=== PATIENT | female | born 1935 | race Caucasian/White ===

== ENCOUNTER 2016-09-29 14:49 | Emergency (ER) | payer OTHER ==
[~2016-09-29] VITALS: Ht 170.2 cm; Wt 137.0 kg
[~2016-09-29 14:49] MED LIST: AMLO5TAB22 PO; APIX5TAB PO; ATEN-100 PO; FENO54TA PO; LOVA20TA PO; OMEP20TA PO; TAB-TAB PO; ULTR50TA PO; VASO10TA8 PO; VITA20002 PO; WELLTAB39 PO
[2016-09-29 14:51] VITALS: BP 194/93; PULSE 83; RESP 17; TEMP 98.4; O2SAT 95
--- NOTE | 2016-09-29 15:21 | PD ---
Physical Exam Time Seen by Provider: 15:19 Narrative 81 y/o female on eliquis here after falling last night. She doesn't know why she fell. She has pain in her R hip/leg. Vital signs reviewed. Seen at triage desk. Awaiting bed placement. Data Data Last Documented VS Vital Signs Date Time Temp Pulse Resp B/P Pulse Ox O2 Delivery O2 Flow Rate FiO2 09/29/16 14:51 98.4 83 17 194/93 95 MDM Medical Record Reviewed: Yes Supervised Visit with LEIA: Jean-Pierre Flynn Sep 29, 2016 15:21
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
[2016-09-29] MEDS ORDERED: FENO54TA PO (17:21)
[2016-09-29] MEDS ORDERED: WELLTAB39 PO (17:21)
[2016-09-29] MEDS ORDERED: AMBI5TAB PO (17:21)
[2016-09-29] MEDS ORDERED: APIX5TAB PO (17:21)
[2016-09-29] MEDS ORDERED: ENAL10TA PO (17:21)
[2016-09-29] MEDS ORDERED: VITA2000 PO (17:21)
[2016-09-29] MEDS ORDERED: ATEN50TA PO (17:21)
[2016-09-29] MEDS ORDERED: AMLO5TAB2 PO (17:21)
[2016-09-29] MEDS ORDERED: OMEP40CA2 PO (17:23)
[2016-09-29] MEDS ORDERED: MULTTAB27 PO (17:23)
[2016-09-29] MEDS ORDERED: TRAM50TA PO (17:23)
[2016-09-29] MEDS ORDERED: LOVA20TA PO (17:23)
--- NOTE | 2016-09-29 17:55 | RADRPT ---
EXAM DATE/TIME: 09/29/2016 17:38 [facility] COMPARISON: No previous studies available for comparison. INDICATIONS : Right arm pain; fell lastnight. MEDICAL HISTORY : None. SURGICAL HISTORY : None. ENCOUNTER: Initial ACUITY: 1 day PAIN SCORE: 3/10 LOCATION: Right forearm FINDINGS: Two view examination of the right forearm demonstrates no evidence of fracture or dislocation. Bony mineralization is normal. The soft tissue structures are intact. CONCLUSION: Unremarkable examination of the right forearm. Miguel Steward MD on September 29, 2016 at 17:53 Board Certified Radiologist. This report was verified electronically.
[2016-09-29 17:58] LABS: AUTOMATED NEUTROPHIL # 6.2 TH/MM3 (1.8-7.7); BASOPHIL % 0.4 % (0.0-2.0); EOSINOPHIL # 0.1 TH/MM3 (0-0.4); HEMATOCRIT 40.9 % (35.0-46.0); HEMO FLAGS DIFF FINAL; LYMPH % 12.7 % (9.0-44.0); LYMPHOCYTE # 1.1 TH/MM3 (1.0-4.8); MEAN CELL VOLUME 96.8 FL (80.0-100.0); MEAN CORPUSCULAR HEMOGLOBIN 32.3 PG (27.0-34.0); MEAN CORPUSCULAR HGB CONC 33.3 % (32.0-36.0); MONO % 12.1 % (0.0-8.0); NEUT % 73.8 % (16.0-70.0); PLATELET COUNT 167 TH/MM3 (150-450); RED BLOOD COUNT 4.23 MIL/MM3 (4.00-5.30); RED CELL DISTRIBUTION WIDTH 15.4 % (11.6-17.2); WHITE BLOOD COUNT 8.5 TH/MM3 (4.0-11.0)
[2016-09-29 18:04] LABS: APTT (PATIENT) 29.4 SEC (24.3-30.1)
[2016-09-29 18:12] LABS: BICARBONATE 27.3 MEQ/L (21.0-32.0); POTASSIUM 3.8 MEQ/L (3.5-5.1)
--- NOTE | 2016-09-29 18:44 | RADRPT ---
EXAM DATE/TIME: 09/29/2016 18:21 [facility] COMPARISON: No previous studies available for comparison. INDICATIONS : Trauma, fall from standing yesterday. RADIATION DOSE: 56.35 CTDIvol (mGy) MEDICAL HISTORY : Hypertension. SURGICAL HISTORY : Hysterectomy. ovarian tumor removed ENCOUNTER: Initial ACUITY: 2 days PAIN SCALE: 0/10 LOCATION: Bilateral head TECHNIQUE: Multiple contiguous axial images were obtained of the head. Using automated exposure control and adj ustment of the mA and/or kV according to patient size, radiation dose was kept as low as reasonably a chievable to obtain optimal diagnostic quality images. DICOM format image data is available electro nically for review and comparison. FINDINGS: There is no hemorrhage or signs of acute infarct or periventricular white matter disease identified a nd most likely on the basis of chronic microvascular ischemic disease. An extra-axial hyperdense mass in the posterior fossa on the right measuring 1.6 x 1.8 cm in AP dimension is difficult to exclude o n axial image 10. There is no edema or mass effect. This may be related to the right cerebellar hemis phere though indeterminate. No fractures. CONCLUSION: 1. Extra-axial appearing rounded hyperdensity in the posterior fossa on the right is noted. A mass ca n have this appearance. MRI of the brain with and without contrast suggested for further assessment. 2. Patchy white matter disease with no evidence for intracranial hemorrhage. Дмитрий Santos MD on September 29, 2016 at 18:41 Board Certified Radiologist. This report was verified electronically.
--- NOTE | 2016-09-29 18:48 | RADRPT ---
EXAM DATE/TIME: 09/29/2016 18:22 [facility] COMPARISON: No previous studies available for comparison. INDICATIONS : Trauma, fall from standing yesterday. RADIATION DOSE: 65.94 CTDIvol (mGy) ; Patient body habitus MEDICAL HISTORY : Hypertension. renal stone SURGICAL HISTORY : Hysterectomy. Cholecystectomy. ovarian tumor removed ENCOUNTER: Initial ACUITY: 2 days PAIN SCALE: 5/10 LOCATION: Right hip TECHNIQUE: Volumetric scanning of the hip was performed. Using automated exposure control and adjustment of the mA and/or kV according to patient size, radiation dose was kept as low as reasonably achievable to o btain optimal diagnostic quality images. DICOM format image data is available electronically for rev iew and comparison. FINDINGS: BONES: No evidence of fracture. Alignment is within normal limits. JOINTS: No evidence of joint narrowing or effusion. SOFT TISSUES: Muscles, tendons and neurovascular structures are grossly unremarkable. No evidence of mass, organize d fluid collection, or foreign body. CONCLUSION: No acute disease. Дмитрий Santos MD on September 29, 2016 at 18:45 Board Certified Radiologist. This report was verified electronically.
--- NOTE | 2016-09-29 18:49 | RADRPT ---
EXAM DATE/TIME: 09/29/2016 18:28 [facility] COMPARISON: No previous studies available for comparison. INDICATIONS : Trauma, fall from standing yesterday. RADIATION DOSE: 41.45 CTDIvol (mGy) ; Patient body habitus MEDICAL HISTORY : Hypertension. SURGICAL HISTORY : Hysterectomy. ovarian tumor removed ENCOUNTER: Initial ACUITY: 2 days PAIN SCALE: 8/10 LOCATION: Right knee TECHNIQUE: Volumetric scanning of the knee was performed. Using automated exposure control and adjustment of th e mA and/or kV according to patient size, radiation dose was kept as low as reasonably achievable to obtain optimal diagnostic quality images. DICOM format image data is available electronically for re view and comparison. FINDINGS: The bone density is decreased there is moderate osteoarthritis at the patellofemoral joint and severe narrowing of the medial greater than lateral tibiofemoral compartment with a [id number] appearance medially. Subchondral sclerosis and prominent marginal osteophytosis of the medial lateral aspects o f the tibiofemoral joint. There is spurring of the tibial spines. There is a large knee joint effusio n. A fracture is not present. CONCLUSION: 1. Severe osteoarthritis no knee joint effusion without definite fracture. Дмитрий Santos MD on September 29, 2016 at 18:47 Board Certified Radiologist. This report was verified electronically.
[2016-09-29] MEDS ORDERED: GADOBENATE DIM PF 529 MG/ML 20ML VIAL (for RAD MRI) IV ONE (20:05)
--- NOTE | 2016-09-29 20:20 | RADRPT ---
EXAM DATE/TIME: 09/29/2016 19:36 [facility] COMPARISON: CT BRAIN W/O CONTRAST, September 29, 2016, 18:21. INDICATIONS : Mass. CONTRAST: 20 cc Multihance (gadobenate) IV MEDICAL HISTORY : Carcinoma, ovarian. Hypertension. SURGICAL HISTORY : Tonsillectomy. Cholecystectomy. Hysterectomy. Hernia repair. ENCOUNTER: Subsequent ACUITY: 1 day PAIN SCORE: 3/10 LOCATION: cranial TECHNIQUE: Multiplanar, multisequence MRI of the brain was performed both prior to and following the administrat ion of paramagnetic contrast. FINDINGS: Diffusion weighted images demonstrate no evidence for acute infarction. There is mild fine loss and p atchy increased flair signal in bilateral centrum semiovale, periventricular white matter and mary mo st characteristic of chronic microvascular ischemic disease. There is no hemorrhage. The MRI confirms the presence of an avidly enhancing extra-axial mass abutting the right transverse sinus with mild m ass effect on the posterior superior cerebellum. The mass measures 2.2 x 1.8 cm in AP and transverse dimension. No other masses are seen. A meningioma would be the leading consideration in the absence o f known malignancy, a dural based metastatic deposit is felt considerably less likely. It is isointen se to peralta matter on T1 and T2-weighted images. CONCLUSION: 1. Mild volume loss and white matter disease. 2. Extra-axial posterior fossa mass abutting the transverse sinus with imaging features consistent wi th meningioma. A metastatic deposit is felt less likely. Дмитрий Santos MD on September 29, 2016 at 20:15 Board Certified Radiologist. This report was verified electronically.
--- NOTE | 2016-09-29 21:02 | PD ---
Physical Exam Date Seen by Provider: Sep 29, 2016 Data Data Last Documented VS Vital Signs Date Time Temp Pulse Resp B/P Pulse Ox O2 Delivery O2 Flow Rate FiO2 09/29/16 14:51 98.4 83 17 194/[address] Brain W/O Iv Contrast(Rout) (09/29/16 ) Ct Knee W/O Contrast (09/29/16 ) Ct Hip W/O Contrast (09/29/16 ) Forearm (2vws) (09/29/16 ) Complete Blood Count With Diff (09/29/16 17:07) Basic Metabolic Panel (Bmp) (09/29/16 17:07) Prothrombin Time / Inr (Pt) (09/29/16 17:07) Act Partial Throm Time (Ptt) (09/29/16 17:07) Mri Brain W&W/O Contrast (09/29/16 ) Gadobenate Dimeglimine Pf Inj (Multihanc (09/29/16 20:05) Labs Laboratory Tests Test 09/29/16 17:15 White Blood Count 8.5 TH/MM3 Red Blood Count 4.23 MIL/MM3 Hemoglobin 13.6 GM/DL Hematocrit 40.9 % Mean Corpuscular Volume 96.8 FL Mean Corpuscular Hemoglobin 32.3 PG Mean Corpuscular Hemoglobin 33.3 % Concent Red Cell Distribution Width 15.4 % Platelet Count 167 TH/MM3 Mean Platelet Volume 10.4 FL Neutrophils (%) (Auto) 73.8 % Lymphocytes (%) (Auto) 12.7 % Monocytes (%) (Auto) 12.1 % Eosinophils (%) (Auto) 1.0 % Basophils (%) (Auto) 0.4 % Neutrophils # (Auto) 6.2 TH/MM3 Lymphocytes # (Auto) 1.1 TH/MM3 Monocytes # (Auto) 1.0 TH/MM3 Eosinophils # (Auto) 0.1 TH/MM3 Basophils # (Auto) 0.0 TH/MM3 CBC Comment DIFF FINAL Differential Comment Prothrombin Time 11.0 SEC Prothromb Time International 1.0 RATIO Ratio Activated Partial 29.4 SEC Thromboplast Time Sodium Level 138 MEQ/L Potassium Level 3.8 MEQ/L Chloride Level 103 MEQ/L Carbon Dioxide Level 27.3 MEQ/L Anion Gap 8 MEQ/L Blood Urea Nitrogen 31 MG/DL Creatinine 1.32 MG/DL Estimat Glomerular Filtration 39 ML/MIN Rate Random Glucose 97 MG/DL Calcium Level 9.8 MG/DL [facility] Medical Record Reviewed: Yes Supervised Visit with LEAI: No Interpretation(s) Vital Signs Date Time Temp Pulse Resp B/P Pulse Ox O2 Delivery O2 Flow Rate FiO2 09/29/16 14:51 98.4 83 17 194/93 95 Laboratory Tests Test 09/29/16 17:15 White Blood Count 8.5 TH/MM3 (4.0-11.0) Red Blood Count 4.23 MIL/MM3 (4.00-5.30) Hemoglobin 13.6 GM/DL (11.6-15.3) Hematocrit 40.9 % (35.0-46.0) Mean Corpuscular Volume 96.8 FL (80.0-100.0) Mean Corpuscular Hemoglobin 32.3 PG (27.0-34.0) Mean Corpuscular Hemoglobin 33.3 % Concent (32.0-36.0) Red Cell Distribution Width 15.4 % (11.6-17.2) Platelet Count 167 TH/MM3 (150-450) Mean Platelet Volume 10.4 FL (7.0-11.0) Neutrophils (%) (Auto) 73.8 % (16.0-70.0) Lymphocytes (%) (Auto) 12.7 % (9.0-44.0) Monocytes (%) (Auto) 12.1 % (0.0-8.0) Eosinophils (%) (Auto) 1.0 % (0.0-4.0) Basophils (%) (Auto) 0.4 % (0.0-2.0) Neutrophils # (Auto) 6.2 TH/MM3 (1.8-7.7) Lymphocytes # (Auto) 1.1 TH/MM3 (1.0-4.8) Monocytes # (Auto) 1.0 TH/MM3 (0-0.9) Eosinophils # (Auto) 0.1 TH/MM3 (0-0.4) Basophils # (Auto) 0.0 TH/MM3 (0-0.2) CBC Comment DIFF FINAL Differential Comment Prothrombin Time 11.0 SEC (9.8-11.6) Prothromb Time International 1.0 RATIO Ratio Activated Partial 29.4 SEC Thromboplast Time (24.3-30.1) Sodium Level 138 MEQ/L (136-145) Potassium Level 3.8 MEQ/L (3.5-5.1) Chloride Level 103 MEQ/L (98-107) Carbon Dioxide Level 27.3 MEQ/L (21.0-32.0) Anion Gap 8 MEQ/L (5-15) Blood Urea Nitrogen 31 MG/DL (7-18) Creatinine 1.32 MG/DL (0.50-1.00) Estimat Glomerular Filtration 39 ML/MIN (>89) Rate Random Glucose 97 MG/DL (74-106) Calcium Level 9.8 MG/DL (8.5-10.1) Last Impressions Radius/Ulna X-Ray 09/29/16 Signed Impressions: Service Date/Time: September 17:38 - CONCLUSION: Unremarkable examination of the right forearm. Miguel Steward MD Lower Extremity CT 09/29/16 Signed Impressions: Service Date/Time: September 18:22 - CONCLUSION: No acute disease. Дмитрий Santos MD Lower Extremity CT 09/29/16 Signed Impressions: Service Date/Time: September 18:28 - CONCLUSION: 1. Severe osteoarthritis no knee joint effusion without definite fracture. Дмитрий Santos MD Head CT 09/29/16 Signed Impressions: Service Date/Time: September 18:21 - CONCLUSION: 1. Extra- axial appearing rounded hyperdensity in the posterior fossa on the right is noted. A mass can have this appearance. MRI of the brain with and without contrast suggested for further assessment. 2. Patchy white matter disease with no evidence for intracranial hemorrhage. Дмитрий Santos MD Brain MRI 09/29/16 Signed Impressions: Service Date/Time: September 19:36 - CONCLUSION: 1. Mild volume loss and white matter disease. 2. Extra-axial posterior fossa mass abutting the transverse sinus with imaging features consistent with meningioma. A metastatic deposit is felt less likely. Дмитрий Santos MD Differential Diagnosis Differential includes knee fractures, forearm contusion versus fracture, ICH, electrolyte abnormality, ACS though unlikely Narrative Course Patient signed out to me by Dr. Lorenzana and change of shift, patient pending MRI of brain. Please see previous providers records for full workup and history of patient. Patient is an 81-year-old female who presents to emergency room after she had trip and fall last night while at home. Patient reports that she was walking with her walker to the bathroom, reports that she must of trips, reports that she fell backwards and landed on her knees. She denies any loss of consciousness, denies any headache or dizziness at this time. Patient reports that when she came to the emergency room was because of pain to her knees. Patient is on Eliquis as she has history of atrial fibrillation. Patient with no complaints of headache or dizziness, denies any chest pain or shortness of breath. Patient's only complaint is bilateral knee pain which has improved throughout her ER visit. CBC & BMP Diagram 09/29/16 17:15 Labs reviewed Last Impressions Radius/Ulna X-Ray 09/29/16 0000 Signed Impressions: Service Date/Time: , September 29, 2016 17:38 - CONCLUSION: Unremarkable examination of the right forearm. Miguel Steward MD Lower Extremity CT 09/29/16 0000 Signed Impressions: Service Date/Time: , September 29, 2016 18:22 - CONCLUSION: No acute disease. Дмитрий Santos MD Lower Extremity CT 09/29/16 0000 Signed Impressions: Service Date/Time: , September 29, 2016 18:28 - CONCLUSION: 1. Severe osteoarthritis no knee joint effusion without definite fracture. Дмитрий Santos MD Head CT 09/29/16 0000 Signed Impressions: Service Date/Time: September 18:21 - CONCLUSION: 1. Extra- axial appearing rounded hyperdensity in the posterior fossa on the right is noted. A mass can have this appearance. MRI of the brain with and without contrast suggested for further assessment. 2. Patchy white matter disease with no evidence for intracranial hemorrhage. Дмитрий Santos MD Brain MRI 09/29/16 0000 Signed Impressions: Service Date/Time: , September 29, 2016 19:36 - CONCLUSION: 1. Mild volume loss and white matter disease. 2. Extra-axial posterior fossa mass abutting the transverse sinus with imaging features consistent with meningioma. A metastatic deposit is felt less likely. Дмитрий Santos MD CT, x-rays and MRI reports reviewed. Copies of her reports were given to her at discharge as she will need to follow-up with a primary care doctor. Brain MRI shows a Extra-axial posterior fossa mass abutting the transverse sinus with imaging features consistent with meningioma. A metastatic deposit is felt less likely. This was reviewed with patient in detail. Patient has been ambulating in ER with normal gait. Patient reports that she feels better and wanted to be discharged home. Signs and symptoms of when to return to the emergency room was reviewed patient and her in detail. Diagnosis Primary Impression: Fall Qualified Code: W19.XXXA - Fall, initial encounter Additional Impressions: Sprain of knee Qualified Code: S83.90XA - Sprain of knee, unspecified laterality, unspecified ligament, initial encounter Arthritis Meningioma Patient Instructions: General Instructions Additional Instruction: Please provide patient with a copy of her lab work and studies at discharge Please follow-up with your primary care doctor in 24-48 hours Return to the emergency room as needed Return to emergency department if symptoms worsen or progress Disposition: 01 DISCHARGE HOME Condition: Stable Emili Grey DO Sep 29, 2016 21:02
[2016-09-29 21:13] VITALS: BP 169/78
== END 2016-09-29 21:14 | disposition home or self-care (01) ==
LOC: NEPC 14:49
DX: S83.90XA Sprain of unspecified site of unspecified knee, initial encounter (principal); M25.561 Pain in right knee; M25.551 Pain in right hip; I48.91 Unspecified atrial fibrillation; W19.XXXA Unspecified fall, initial encounter; Y93.01 Activity, walking, marching and hiking; Z79.01 Long term (current) use of anticoagulants
CPT/HCPCS: 70450; 70553; 73090; 73700; 80048; 85025; 85610; 85730; 99285; A9577

== ENCOUNTER 2016-11-15 16:41 | Emergency (ER) | payer OTHER ==
[~2016-11-15] VITALS: Ht 172.7 cm; Wt 138.4 kg
[~2016-11-15 16:41] MED LIST changes: +AMBI5TAB PO; +AMLO5TAB2 PO; -AMLO5TAB22 PO; -ATEN-100 PO; +ATEN50TA PO; +ENAL10TA PO; +MULTTAB27 PO; -OMEP20TA PO; +OMEP40CA2 PO; -TAB-TAB PO; +TRAM50TA PO; -ULTR50TA PO; -VASO10TA8 PO; +VITA2000 PO; -VITA20002 PO
[2016-11-15 16:47] VITALS: BP 228/100; PULSE 77; RESP 18; TEMP 97.9; O2SAT 92
[2016-11-15] MEDS ORDERED: VENL75TA PO (17:11)
[2016-11-15] MEDS ORDERED: GABA100C4 PO (17:11)
[2016-11-15] MEDS ORDERED: PARO20TA2 PO (17:11)
[2016-11-15] MEDS ORDERED: ALLO100T PO (17:11)
[2016-11-15] MEDS ORDERED: OXYB5TAB10 PO (17:11)
[2016-11-15] MEDS ORDERED: ATENOLOL 25 MG TAB PO ONE (17:30)
--- NOTE | 2016-11-15 17:46 | PD ---
HPI Chief Complaint: Hypertension Time Seen by Provider: 17:05 Travel History International Travel<30 days: No Contact w/Intl Traveler<30days: No Traveled to known affect area: No History of Present Illness HPI 81 y/o female presents with elevated blood pressure. her states that she has been off her blood pressure medication for the past week. They went to a new primary Dr. Soares who thought they should come to the er for bp control. She is off her atenolol. She denies pain but does note tired all over. states the doctor noiced the swelling in her legs but thinks it has been there awhile maybe a couple months. she also denies shortness of breath and other compliants. quality is elevated. severity in office is 240 range over 120 range. patient is a poor historian [facility] Past Medical History Narrative Medical by records Hx Anticoagulant Therapy: Yes Arthritis: Yes Blood Disorders: No Anxiety: Yes Depression: Yes Cancer: Yes (abd -) Cardiovascular Problems: Yes Dementia: Yes (DURING INTERVIEW, WHISPERED DEMENTIA) Diminished Hearing: No Endocrine: No Gastrointestinal Disorders: Yes GERD: Yes Gout: Yes Genitourinary: Yes Hepatitis: No Hiatal Hernia: No Hypertension: Yes Immune Disorder: No Kidney Stones: Yes Musculoskeletal: Yes Neurologic: No Psychiatric: Yes Reproductive: No Respiratory: No Ulcer: No ?: Not Menopausal: Yes Past Surgical History Narrative Surgical by records Abdominal Surgery: Yes (BOWEL OBSTRUCTION IN 2001) AICD: No Appendectomy: No Arteriovenous Shunt: No Cardiac Surgery: No Cholecystectomy: Yes Ear Surgery: No Endocrine Surgery: No Eye Surgery: No Genitourinary Surgery: No Gynecologic Surgery: No Hysterectomy: Yes (TOTAL) Insulin Pump: No Joint Replacement: No Oral Surgery: No Pacemaker: No Tonsillectomy: Yes Other Surgery: Yes (RIGHT KNEE ARTHROSCOPIC / OVARIAN TUMOR REMOVED) Social History Alcohol Use: Yes (WINE WITH MEAL, OCCASS.) Tobacco Use: No (quit) Substance Use: No Allergies-Medications (Allergen,Severity, Reaction): Coded Allergies: codeine (Unverified Allergy, Severe, n/v, 11/15/16) meperidine (Unverified Allergy, Unknown, 11/15/16) morphine (Unverified Adverse Reaction, Severe, Confusion, 11/15/16) PT STATES SHE GOT OUT OF RESTRAINTS AND WAS PULLING AT EVERYTHING Reported Meds & Prescriptions Reported Meds & Active Scripts Active Reported Effexor (Venlafaxine HCl) 75 Mg Tab 75 Mg PO DAILY Paroxetine (Paroxetine HCl) 20 Mg Tab 20 Mg PO DAILY Allopurinol 100 Mg Tab 100 Mg PO DAILY Gabapentin 100 Mg Cap 200 Mg PO TID Ditropan (Oxybutynin Chloride) 5 Mg Tab 5 Mg PO TID Tramadol (Tramadol HCl) 50 Mg Tab 50 Mg PO TID PRN Omeprazole 40 Mg Cap 20 Mg PO BID Enalapril (Enalapril Maleate) 10 Mg Tab 10 Mg PO BID Vitamin D3 (Cholecalciferol) 2,000 Unit Cap 2,000 Units PO DAILY Atenolol 50 Mg Tab 25 Mg PO BID Eliquis (Apixaban) 5 Mg Tab 5 Mg PO BID Review of Systems ROS Limitations: Poor Historian Physical Exam Exam Limitations: Poor Historian Narrative GENERAL: Well-nourished, well-developed patient. SKIN: Warm and dry. HEAD: Normocephalic and atraumatic. EYES: No injection or drainage. ENT: No nasal drainage noted. NECK: Supple, trachea midline. CARDIOVASCULAR: Regular rate and rhythm RESPIRATORY: Breath sounds equal bilaterally. No accessory muscle use. GASTROINTESTINAL: Abdomen soft, non-tender, nondistended. EXTREMITIES: 3+ pitting edema noted to bilateral lower extremities to knees, nvi , no joint pain NEUROLOGICAL: Awake. moves all extremities and sensory grossly within normal limits. Normal speech. Data Data Last Documented VS Vital Signs Date Time Temp Pulse Resp B/P (MAP) Pulse Ox O2 Delivery O2 Flow Rate FiO2 11/15/16 18:44 71 18 176/84 (114) 95 11/15/16 16:47 97.9 Orders Orders Magnesium (Mg) (11/15/16 17:20) Phosphorus (Po4) (11/15/16 17:20) Complete Blood Count With Diff (11/15/16 17:20) Basic Metabolic Panel (Bmp) (11/15/16 17:20) Urinalysis - C+S If Indicated (11/15/16 17:20) Chest, Pa & Lat (11/15/16 ) Iv Access Insert/Monitor (11/15/16 17:20) Ecg Monitoring (11/15/16 17:20) Oximetry (11/15/16 17:20) Atenolol (Tenormin) (11/15/16 17:30) Us Leg Venous Doppler Bilat (11/15/16 17:52) Labs Laboratory Tests Test 11/15/16 17:45 White Blood Count 13.3 TH/MM3 Red Blood Count 4.02 MIL/MM3 Hemoglobin 12.6 GM/DL Hematocrit 38.4 % Mean Corpuscular Volume 95.5 FL Mean Corpuscular Hemoglobin 31.4 PG Mean Corpuscular Hemoglobin Concent 32.9 % Red Cell Distribution Width 15.2 % Platelet Count 218 TH/MM3 Mean Platelet Volume 10.2 FL Neutrophils (%) (Auto) 80.2 % Lymphocytes (%) (Auto) 8.7 % Monocytes (%) (Auto) 5.9 % Eosinophils (%) (Auto) 1.2 % Basophils (%) (Auto) 4.0 % Neutrophils # (Auto) 10.6 TH/MM3 Lymphocytes # (Auto) 1.2 TH/MM3 Monocytes # (Auto) 0.8 TH/MM3 Eosinophils # (Auto) 0.2 TH/MM3 Basophils # (Auto) 0.5 TH/MM3 CBC Comment DIFF FINAL Differential Comment Blood Urea Nitrogen 28 MG/DL Creatinine 1.30 MG/DL Random Glucose 108 MG/DL Calcium Level 9.9 MG/DL Phosphorus Level 2.9 MG/DL Magnesium Level 1.8 MG/DL Sodium Level 140 MEQ/L Potassium Level 4.0 MEQ/L Chloride Level 104 MEQ/L Carbon Dioxide Level 28.1 MEQ/L Anion Gap 8 MEQ/L Estimat Glomerular Filtration Rate 39 ML/MIN MDM Medical Decision Making Medical Screen Exam Complete: Yes Emergency Medical Condition: Yes Medical Record Reviewed: Yes (pmh confirmed) Interpretation(s) CBC & BMP Diagram 11/15/16 17:45 Calcium Level 9.9, Phosphorus Level 2.9, Magnesium Level 1.8 Last 24 hours Impressions Chest X-Ray 11/15/16 0000 Signed Impressions: Service Date/Time: Tuesday, November 15, 2016 17:47 - CONCLUSION: No acute infiltrate. Mild cardiomegaly. Large hiatal hernia. Stevo Quinones MD Differential Diagnosis anemia, renal failure, electrolyte abnormality, dvt, chf, hypertensive urgency... Narrative Course will check labs, cxr, us and dose with home atenolol and reeval Physician Communication Physician Communication dr hart to follow ua and ultrasound and reeval Dara Vail MD Nov 15, 2016 17:46
[2016-11-15 17:48] VITALS: O2SAT 98
[2016-11-15 17:57] LABS: AUTOMATED NEUTROPHIL # 10.6 TH/MM3 (1.8-7.7); BASOPHIL # 0.5 TH/MM3 (0-0.2); EOSINOPHIL # 0.2 TH/MM3 (0-0.4); EOSINOPHIL % 1.2 % (0.0-4.0); HEMATOCRIT 38.4 % (35.0-46.0); HEMO FLAGS DIFF FINAL; LYMPH % 8.7 % (9.0-44.0); LYMPHOCYTE # 1.2 TH/MM3 (1.0-4.8); MEAN CELL VOLUME 95.5 FL (80.0-100.0); MEAN CORPUSCULAR HEMOGLOBIN 31.4 PG (27.0-34.0); MEAN CORPUSCULAR HGB CONC 32.9 % (32.0-36.0); MONO % 5.9 % (0.0-8.0); NEUT % 80.2 % (16.0-70.0); PLATELET COUNT 218 TH/MM3 (150-450); RED BLOOD COUNT 4.02 MIL/MM3 (4.00-5.30); RED CELL DISTRIBUTION WIDTH 15.2 % (11.6-17.2); WHITE BLOOD COUNT 13.3 TH/MM3 (4.0-11.0)
--- NOTE | 2016-11-15 18:07 | RADRPT ---
EXAM DATE/TIME: 11/15/2016 17:47 [facility] COMPARISON: CHEST SINGLE AP, March 27, 2015, 16:01. INDICATIONS : High blood pressure. Patient was sent to the emergency room by her primary care physician with high blood pressure. MEDICAL HISTORY : Carcinoma, ovarian. Hypertension. SURGICAL HISTORY : Tonsillectomy. Cholecystectomy. Hysterectomy. Hernia repair. ENCOUNTER: Initial ACUITY: 1 day PAIN SCORE: 0/10 LOCATION: Bilateral chest FINDINGS: No infiltrate, effusion or pneumothorax seen. Large hiatal hernia again noted. Mild cardiomegaly is s table. CONCLUSION: No acute infiltrate. Mild cardiomegaly. Large hiatal hernia. Stevo Quinones MD on November 15, 2016 at 18:04 Board Certified Radiologist. This report was verified electronically.
[2016-11-15 18:10] LABS: BICARBONATE 28.1 MEQ/L (21.0-32.0); MAGNESIUM 1.8 MG/DL (1.5-2.5)
[2016-11-15 18:44] VITALS: BP 176/84; PULSE 71; RESP 18; O2SAT 95
--- NOTE | 2016-11-15 19:29 | RADRPT ---
EXAM DATE/TIME: 11/15/2016 18:17 [facility] COMPARISON: No previous studies available for comparison. INDICATIONS : Bilateral leg edema. MEDICAL HISTORY : Gastroesophageal reflux disease. Dementia. Hypertension. Kidney stones. Arthritis. Depression. Anxiety. Carcinoma, unspecified. SURGICAL HISTORY : Tonsillectomy.Cholecystectomy. Hysterectomy.Bowel obstruction removal. Back surgery. Right knee art hroscopy. Ovarian tumor removal. ENCOUNTER: Initial ACUITY: 1 month PAIN SCORE: 6/10 LOCATION: Bilateral legs. TECHNIQUE: Venous ultrasound of the left and right leg was performed from the inguinal ligament to the proximal calf. Real-time, color Doppler and spectral tracing, compression and augmentation techniques were us ed. FINDINGS: RIGHT LEG: There is normal compressibility of the deep venous system from the inguinal region to the proximal ca lf. No echogenic clot is seen in the lumen of the common femoral, femoral, popliteal, and posterior tibial veins. There is a normal response of the venous system to proximal and distal augmentation an d respiration. LEFT LEG: There is normal compressibility of the deep venous system from the inguinal region to the proximal ca lf. No echogenic clot is seen in the lumen of the common femoral, femoral, popliteal, and posterior tibial veins. There is a normal response of the venous system to proximal and distal augmentation an d respiration. CONCLUSION: Negative for deep venous thrombosis. Popliteal cyst on the left, complex. Adonis Gonzalez MD on November 15, 2016 at 19:22 Board Certified Radiologist. This report was verified electronically.
[2016-11-15 19:33] VITALS: PULSE 68; RESP 18; O2SAT 93
[2016-11-15 19:34] LABS: GLUCOSE,URINE NEG (NEG); KETONE, URINE NEG (NEG); NITRITE,URINE NEG (NEG); PH, URINE 5.5 (5.0-8.5)
--- NOTE | 2016-11-15 19:41 | PD ---
Data Data Last Documented VS Vital Signs Date Time Temp Pulse Resp B/P (MAP) Pulse Ox O2 Delivery O2 Flow Rate FiO2 11/15/16 19:52 60 189/94 (125) 95 Room Air 11/15/16 19:33 18 11/15/16 16:47 97.9 Orders Orders Magnesium (Mg) (11/15/16 17:20) Phosphorus (Po4) (11/15/16 17:20) Complete Blood Count With Diff (11/15/16 17:20) Basic Metabolic Panel (Bmp) (11/15/16 17:20) Urinalysis - C+S If Indicated (11/15/16 17:20) Chest, Pa & Lat (11/15/16 ) Iv Access Insert/Monitor (11/15/16 17:20) Ecg Monitoring (11/15/16 17:20) Oximetry (11/15/16 17:20) Atenolol (Tenormin) (11/15/16 17:30) Us Leg Venous Doppler Bilat (11/15/16 17:52) Labs Laboratory Tests Test 11/15/16 17:45 11/15/16 19:20 White Blood Count 13.3 TH/MM3 Red Blood Count 4.02 MIL/MM3 Hemoglobin 12.6 GM/DL Hematocrit 38.4 % Mean Corpuscular Volume 95.5 FL Mean Corpuscular Hemoglobin 31.4 PG Mean Corpuscular Hemoglobin Concent 32.9 % Red Cell Distribution Width 15.2 % Platelet Count 218 TH/MM3 Mean Platelet Volume 10.2 FL Neutrophils (%) (Auto) 80.2 % Lymphocytes (%) (Auto) 8.7 % Monocytes (%) (Auto) 5.9 % Eosinophils (%) (Auto) 1.2 % Basophils (%) (Auto) 4.0 % Neutrophils # (Auto) 10.6 TH/MM3 Lymphocytes # (Auto) 1.2 TH/MM3 Monocytes # (Auto) 0.8 TH/MM3 Eosinophils # (Auto) 0.2 TH/MM3 Basophils # (Auto) 0.5 TH/MM3 CBC Comment DIFF FINAL Differential Comment Blood Urea Nitrogen 28 MG/DL Creatinine 1.30 MG/DL Random Glucose 108 MG/DL Calcium Level 9.9 MG/DL Phosphorus Level 2.9 MG/DL Magnesium Level 1.8 MG/DL Sodium Level 140 MEQ/L Potassium Level 4.0 MEQ/L Chloride Level 104 MEQ/L Carbon Dioxide Level 28.1 MEQ/L Anion Gap 8 MEQ/L Estimat Glomerular Filtration Rate 39 ML/MIN Urine Color [place] Urine Turbidity MOD Urine pH 5.5 Urine Specific [place] 1.022 Urine Protein 100 mg/dL Urine Glucose (UA) NEG mg/dL Urine Ketones NEG mg/dL Urine Occult Blood TRACE Urine Nitrite NEG Urine Bilirubin NEG Urine Leukocyte Esterase NEG Urine RBC 0-3 /hpf Urine WBC 0-2 /hpf Urine Squamous Epithelial Cells > 8 /hpf Urine Calcium Oxalate Crystals OCC /hpf Urine Bacteria FEW /hpf Urine Hyaline Casts 6-9 /lpf Urine Fine Granular Casts 0-2 /lpf Urine Mucus MOD /lpf Microscopic Urinalysis Comment CULT NOT INDICATED MDM Supervised Visit with LEIA: No Narrative Course The patient was initially evaluated by the previous provider and sent out to me at the beginning of my shift pending labs, bilateral lower extremity ultrasound , and disposition. See her note for further details. Briefly this is an 81-year-old female with history of hypertension who has not had her atenolol for the last week who was seen by a new primary care physician today who noticed her blood pressure was elevated at 200s/100s, so she was sent to the emergency department by him for evaluation. The patient is completely asymptomatic. She denies chest pain or dyspnea. No headache. No paresthesias or motor deficits. Patient has also had lower extremity edema which has been going on for a couple of months. Initial vital signs showed a blood pressure 228/100. The patient was given a dose of her atenolol with improvement in heart rate to 176/84. The rest of her vital signs are within normal limits. CBC shows WBC 13.3, hemoglobin 12.6, hematocrit 38.4, platelets 218. BMP is remarkable for BUN 20, creatinine 1.3, GFR 39 which is around her baseline, otherwise unremarkable. Chest x-ray shows no acute infiltrate. Mild cardiomegaly. Large hiatal hernia. Bilateral lower extremity venous duplex: Negative for DVT. Popliteal cyst on the left, complex. UA: Moderate turbidity, 100 protein, trace occult blood, greater than 8 squamous epithelial cells, occasional calcium oxalate crystals, few bacteria, 6-9 hyalin casts, moderate mucus, not suggestive of UTI. Patient and the patient's were made aware of all findings. On exam she is resting comfortably. Again she is asymptomatic. She is not displaying any signs or symptoms of hypertensive crisis. She would like to go home. She has a prescription for her atenolol which she states she will be able to fill. She is stable for discharge home with further management as an outpatient with her primary care physician this week. I will write her a refill of her atenolol. She was informed on when to return to the emergency department. She verbalizes understanding and agreement with plan. Diagnosis Primary Impression: Elevated blood pressure reading Referrals: Primary Care Physician 3 days Additional Instruction: Follow-up with your primary care physician this week. Take medications as prescribed. Return to the emergency department for worsening symptoms or any other concerns. Scripts Atenolol (Atenolol) 25 Mg Tab 25 MG PO BID for Blood Pressure Management, #60 TAB 0 Refills Prov: Lei Sethi MD 11/15/16 Disposition: 01 DISCHARGE HOME Condition: Stable Lei Sethi MD Nov 15, 2016 19:41
[2016-11-15 19:52] VITALS: BP 189/94; PULSE 60; O2SAT 95
[2016-11-15 19:53] LABS: BLOOD, URINE TRACE (NEG)
[2016-11-15 19:59] LABS: URINE COLOR AMBER (YELLW/STRAW)
[2016-11-15 20:02] LABS: MUCUS URINE MOD /lpf (OCC); SQUAMOUS EPITHELIAL CELL URINE > 8 /hpf (0-5)
[2016-11-15 20:03] LABS: BACTERIA, URINE FEW /hpf; CALCIUM OXALATE CRYSTALS,URINE OCC /hpf
[2016-11-15 20:04] LABS: COMMENT (UR) CULT NOT INDICATED; CULTURE IF INDICATED CULT NOT INDICATED; RBC, URINE 0-3 /hpf (0-3); WBC, URINE 0-2 /hpf (0-5)
[2016-11-15] MEDS ORDERED: ATEN25TA PO (20:20)
== END 2016-11-15 20:40 | disposition home or self-care (01) ==
LOC: PHED 16:41
DX: I10 Essential (primary) hypertension (principal); R60.0 Localized edema; F03.90 Unspecified dementia, unspecified severity, without behavioral disturbance, psychotic disturbance, mood disturbance, and anxiety; K21.9 Gastro-esophageal reflux disease without esophagitis; M10.9 Gout, unspecified; R53.83 Other fatigue; Z79.01 Long term (current) use of anticoagulants
CPT/HCPCS: 71020; 80048; 81001; 83735; 84100; 85025; 93970

== ENCOUNTER 2017-02-17 17:07 | Inpatient (IN) | payer OTHER, MEDICARE ==
[2017-02-17] VITALS (7 sets, daily range): BP systolic 160–196; BP diastolic 77–109; PULSE 63–86; RESP 16–20; TEMP 98.2–98.9; O2SAT 92–97
[~2017-02-17] VITALS: Ht 172.7 cm; Wt 130.5 kg
[~2017-02-17 17:07] MED LIST changes: +ALLO100T PO; -AMBI5TAB PO; -AMLO5TAB2 PO; +ATEN25TA PO; -FENO54TA PO; +GABA100C4 PO; -LOVA20TA PO; -MULTTAB27 PO; +OXYB5TAB8 PO; +PARO20TA2 PO; +VENL75TA PO; -WELLTAB39 PO
[2017-02-17] MEDS ORDERED: ACETAMINOPHEN/HYDROcodone 325 MG/5 MG TAB PO ONE (17:45)
[2017-02-17] MEDS ORDERED: ONDANSETRON HCL 4 MG/2 ML VIAL IV PUSH ONE (17:45)
[2017-02-17] MEDS ORDERED: SODIUM CHLORIDE 0.9% FLUSH 10 ML FLUSH IVF PRN (17:45)
[2017-02-17 17:53] LABS: CHLORIDE 102 MEQ/L (98-107); POTASSIUM 3.3 MEQ/L (3.5-5.1); SODIUM (NA) 140 MEQ/L (136-145)
[2017-02-17 17:54] LABS: AUTOMATED NEUTROPHIL # 8.7 TH/MM3 (1.8-7.7); BASOPHIL # 0.1 TH/MM3 (0-0.2); BASOPHIL % 0.6 % (0.0-2.0); EOSINOPHIL # 0.4 TH/MM3 (0-0.4); EOSINOPHIL % 3.2 % (0.0-4.0); HEMATOCRIT 41.3 % (35.0-46.0); LYMPH % 9.9 % (9.0-44.0); LYMPHOCYTE # 1.1 TH/MM3 (1.0-4.8); MEAN CELL VOLUME 93.7 FL (80.0-100.0); MEAN CORPUSCULAR HEMOGLOBIN 30.4 PG (27.0-34.0); MEAN CORPUSCULAR HGB CONC 32.5 % (32.0-36.0); MONO % 6.5 % (0.0-8.0); NEUT % 79.8 % (16.0-70.0); PLATELET COUNT 193 TH/MM3 (150-450); RED BLOOD COUNT 4.41 MIL/MM3 (4.00-5.30); RED CELL DISTRIBUTION WIDTH 14.4 % (11.6-17.2)
[2017-02-17 17:56] LABS: HEMO FLAGS DIFF FINAL
[2017-02-17 17:57] LABS: ANION GAP 10 MEQ/L (5-15); BICARBONATE 28.5 MEQ/L (21.0-32.0); BLOOD UREA NITROGEN 22 MG/DL (7-18)
--- NOTE | 2017-02-17 17:58 | RADRPT ---
EXAM DATE/TIME: 02/17/2017 17:47 [facility] COMPARISON: ABDOMEN FLAT & UPRIGHT, February 21, 2015, 13:51. CHEST SINGLE AP, March 27, 2015, 16:01. INDICATIONS : Chest pain. MEDICAL HISTORY : Gastroesophageal reflux disease. Dementia. Hypertension. Kidney stones, Arthritis. Depression. Anxiet y. Carcinoma, unspecified SURGICAL HISTORY : Tonsillectomy.Cholecystectomy. Hysterectomy.Bowel obstruction, Back surgery. Right knee arthroscopy. Ovarian tumor removal ENCOUNTER: Initial ACUITY: 1 day PAIN SCORE: 5/10 LOCATION: Bilateral chest FINDINGS: The cardiac silhouette is enlarged in transverse diameter. The lungs are free of acute parenchymal op acity. No effusions are identified. There is parenchymal scarring on the left. A large hiatal hernia is present. There is prominence of the aortic knob is with calcification characteristic of atheroscle rotic vascular disease. CONCLUSION: 1. Cardiomegaly. No acute pulmonary disease. 2. Hiatal hernia Nabor Michael MD on February 17, 2017 at 17:56 Board Certified Radiologist. This report was verified electronically.
[2017-02-17 17:59] LABS: APTT (PATIENT) 28.5 SEC (24.3-30.1); INTERNATIONAL NORMALIZED RATIO 1.1 RATIO; PROTHROMBIN TIME - PATIENT 10.8 SEC (9.8-11.6)
[2017-02-17 18:00] LABS: ALT (GPT) 14 U/L (10-53); AST (GOT) 15 U/L (15-37); GLOMERULAR FILTRATION RATE 39 ML/MIN (>89)
[2017-02-17 18:02] LABS: TOTAL BILIRUBIN ADULT 1.3 MG/DL (0.2-1.0)
[2017-02-17 18:03] LABS: ALKALINE PHOSPHATASE 67 U/L (45-117)
--- NOTE | 2017-02-17 18:20 | PD ---
HPI Chief Complaint: Chest Pain Time Seen by Provider: 17:23 Travel History International Travel<30 days: No Contact w/Intl Traveler<30days: No Traveled to known affect area: No History of Present Illness HPI Patient is an 82-year-old female who comes in with multiple complaints of been going on for the past 2 weeks since her daughter . She says she has had cough with chest pain and right shoulder pain. She says all of her aches and pains come and go. She says the cough makes the pain worse. She doesn't pain is in her right shoulder and goes down her arm. Her is concerned that she seems to be having trouble breathing. She says occasionally she feels short of breath. She also complains of some upper abdominal pain. She does not think she's had fever or chills. She says she has having a hard time coping with the loss of her daughter. PFSH Past Medical History Hx Anticoagulant Therapy: Yes Arthritis: Yes Blood Disorders: No Anxiety: Yes Depression: Yes Cancer: Yes (abd -) Cardiovascular Problems: Yes Dementia: Yes (DURING INTERVIEW, WHISPERED DEMENTIA) Diminished Hearing: No Endocrine: No Gastrointestinal Disorders: Yes GERD: Yes Gout: Yes Genitourinary: Yes Hepatitis: No Hiatal Hernia: No Hypertension: Yes Immune Disorder: No Kidney Stones: Yes Musculoskeletal: Yes Neurologic: No Psychiatric: Yes Reproductive: No Respiratory: No Ulcer: No Tetanus Vaccination: Unknown Influenza Vaccination: No Menopausal: Yes Past Surgical History Abdominal Surgery: Yes (BOWEL OBSTRUCTION IN 2001) AICD: No Appendectomy: No Arteriovenous Shunt: No Cardiac Surgery: No Cholecystectomy: Yes Ear Surgery: No Endocrine Surgery: No Eye Surgery: No Genitourinary Surgery: No Gynecologic Surgery: No Hysterectomy: Yes (TOTAL) Insulin Pump: No Joint Replacement: No Oral Surgery: No Pacemaker: No Tonsillectomy: Yes Other Surgery: Yes (RIGHT KNEE ARTHROSCOPIC / OVARIAN TUMOR REMOVED) Social History Alcohol Use: Yes (WINE WITH MEAL, OCCASS.) Tobacco Use: No (quit) Substance Use: No Allergies-Medications (Allergen,Severity, Reaction): Coded Allergies: codeine (Verified Allergy, Severe, n/v, 02/17/17) meperidine (Verified Allergy, Unknown, 02/17/17) morphine (Verified Adverse Reaction, Severe, Confusion, 02/17/17) PT STATES SHE GOT OUT OF RESTRAINTS AND WAS PULLING AT EVERYTHING Reported Meds & Prescriptions Reported Meds & Active Scripts Active Reported Paroxetine (Paroxetine HCl) 20 Mg Tab 20 Mg PO DAILY Allopurinol 100 Mg Tab 100 Mg PO DAILY Gabapentin 100 Mg Cap 200 Mg PO TID Ditropan (Oxybutynin Chloride) 5 Mg Tab 5 Mg PO TID Tramadol (Tramadol HCl) 50 Mg Tab 50 Mg PO TID PRN Omeprazole 40 Mg Cap 20 Mg PO BID Enalapril (Enalapril Maleate) 10 Mg Tab 10 Mg PO BID Vitamin D3 (Cholecalciferol) 2,000 Unit Cap 2,000 Units PO DAILY Atenolol 50 Mg Tab 25 Mg PO BID Eliquis (Apixaban) 5 Mg Tab 5 Mg PO BID Review of Systems Except as stated in HPI: all other systems reviewed are Neg General / Constitutional: No: Fever, Chills HENT: No: Headaches, Lightheadedness Cardiovascular: Positive: Chest Pain or Discomfort Respiratory: Positive: Cough, Shortness of Breath Genitourinary: Positive: Dysuria Skin: No Rash, No Change in Pigmentation Neurologic: No: Weakness, Dizziness Physical Exam Narrative GENERAL: Awake and alert, in no acute distress. SKIN: Focused skin assessment warm/dry. HEAD: Atraumatic. Normocephalic. EYES: Pupils equal and round. No scleral icterus. ENT: Mucous membranes pink and moist. NECK: Trachea midline. No JVD. CARDIOVASCULAR: Regular rate and rhythm. No murmur appreciated. RESPIRATORY: No accessory muscle use. Crackles to the left lung base.. Breath sounds equal bilaterally. GASTROINTESTINAL: Abdomen soft, nondistended. Tenderness across the upper abdomen, worse in the epigastric area. No rebound or guarding. MUSCULOSKELETAL: No obvious deformities. No clubbing. No cyanosis. Mild edema of bilateral feet. NEUROLOGICAL: Awake and alert. No obvious cranial nerve deficits. Motor grossly within normal limits. Normal speech. PSYCHIATRIC: Appropriate mood and affect; insight and judgment normal. Data Data Last Documented VS Vital Signs Date Time Temp Pulse Resp B/P (MAP) Pulse Ox O2 Delivery O2 Flow Rate FiO2 02/17/17 20:00 76 173/94 (120) 187/109 (135) 02/17/17 19:34 96 Room Air 02/17/17 19:32 16 02/17/17 17:15 98.9 Orders Orders Complete Blood Count With Diff (02/17/17 17:35) Comprehensive Metabolic Panel (02/17/17 17:35) Prothrombin Time / Inr (Pt) (02/17/17 17:35) Act Partial Throm Time (Ptt) (02/17/17 17:35) Troponin I (02/17/17 17:35) Lipase (02/17/17 17:35) Chest, Single Ap (02/17/17 17:35) Ecg Monitoring (02/17/17 17:35) Bilateral Bp Monitoring (02/17/17 17:35) Iv Access Insert/Monitor (02/17/17 17:35) Oximetry (02/17/17 17:35) Oxygen Administration (02/17/17 17:35) Sodium Chloride 0.9% Flush (Ns Flush) (02/17/17 17:45) B-Type Natriuretic Peptide (02/17/17 17:35) Ct Abd/Pel W Iv Contrast(Rout) (02/17/17 ) Acetamin-Hydrocod 325-5 Mg ([place] 5-325 (02/17/17 17:45) Ondansetron Inj (Zofran Inj) (02/17/17 17:45) Iodixanol 320 Inj (Rad Ct) ([place] 32 (02/17/17 18:34) Us Abdomen Gallbladder (02/17/17 ) Aspirin Chew (Aspirin Chew) (02/18/17 09:00) Nitroglycerin 2% Oint (Nitroglycerin 2% (02/17/17 21:00) Ckmb (Isoenzyme) Profile (02/17/17 17:40) Electrocardiogram (02/17/17 17:16) Activity Bed Rest With Brp (02/17/17 21:05) Vital Signs (Adult) Q4H (02/17/17 21:05) Cardiac Rhythm .As Directed (02/17/17 21:05) Notify Dr: Other .PRN (02/17/17 21:05) Notify DrLeelee Parameters (02/17/17 21:05) Resp Oxygen Nasal Cannula (02/17/17 ) Ckmb (Isoenzyme) Profile (02/17/17 21:05) Ckmb (Isoenzyme) Profile (02/18/17 00:05) Troponin I (12/8/17 21:05) Troponin I (02/18/17 00:05) Electrocardiogram (02/17/17 21:05) Electrocardiogram (02/18/17 00:05) ^ Obtain (02/17/17 21:05) Sodium Chloride 0.9% Flush (Ns Flush) (02/17/17 21:15) Sodium Chloride 0.9% Flush (Ns Flush) (02/18/17 09:00) Acetaminophen (Tylenol) (02/17/17 21:15) Ondansetron Inj (Zofran Inj) (02/17/17 21:15) Tufter Operator / Telemetry JAIR.Q8H (02/17/17 21:05) Heparin Inj (Heparin Inj) (02/17/17 22:00) Potassium Chloride (Kcl) (02/17/17 22:00) Admit Order (Ed Use Only) (02/17/17 ) Tufter Operator / Telemetry JAIR.Q8H (02/17/17 21:08) Activity Oob With Assistance (02/17/17 21:08) Notify Dr: Other (02/17/17 21:08) Labs Laboratory Tests Test 02/17/17 17:40 White Blood Count 11.0 TH/MM3 Red Blood Count 4.41 MIL/MM3 Hemoglobin 13.4 GM/DL Hematocrit 41.3 % Mean Corpuscular Volume 93.7 FL Mean Corpuscular Hemoglobin 30.4 PG Mean Corpuscular Hemoglobin Concent 32.5 % Red Cell Distribution Width 14.4 % Platelet Count 193 TH/MM3 Mean Platelet Volume 10.4 FL Neutrophils (%) (Auto) 79.8 % Lymphocytes (%) (Auto) 9.9 % Monocytes (%) (Auto) 6.5 % Eosinophils (%) (Auto) 3.2 % Basophils (%) (Auto) 0.6 % Neutrophils # (Auto) 8.7 TH/MM3 Lymphocytes # (Auto) 1.1 TH/MM3 Monocytes # (Auto) 0.7 TH/MM3 Eosinophils # (Auto) 0.4 TH/MM3 Basophils # (Auto) 0.1 TH/MM3 CBC Comment DIFF FINAL Differential Comment Prothrombin Time 10.8 SEC Prothromb Time International Ratio 1.1 RATIO Activated Partial Thromboplast Time 28.5 SEC Blood Urea Nitrogen 22 MG/DL Creatinine 1.30 MG/DL Random Glucose 136 MG/DL Total Protein 7.0 GM/DL Albumin 3.0 GM/DL Calcium Level 9.9 MG/DL Alkaline Phosphatase 67 U/L Aspartate Amino Transf (AST/SGOT) 15 U/L Alanine Aminotransferase (ALT/SGPT) 14 U/L Total Bilirubin 1.3 MG/DL Sodium Level 140 MEQ/L Potassium Level 3.3 MEQ/L Chloride Level 102 MEQ/L Carbon Dioxide Level 28.5 MEQ/L Anion Gap 10 MEQ/L Estimat Glomerular Filtration Rate 39 ML/MIN Total Creatine Kinase 30 U/L Troponin I LESS THAN 0.02 NG/ML B-Type Natriuretic Peptide 200 PG/ML Lipase 108 U/L [facility] Medical Decision Making Medical Screen Exam Complete: Yes Emergency Medical Condition: Yes Medical Record Reviewed: Yes Interpretation(s) ECG shows right bundle branch block, possible atrial fibrillation, rate of 88. Differential Diagnosis ACS versus cholecystitis versus muscle spasm versus depression versus pneumonia versus bronchitis Narrative Course Patient is an 82-year-old female who comes in with multiple complaints. All these complaints of been going on for 2 weeks since her daughter past. Exam shows tenderness across the upper abdomen. IV established, labs sent. Troponin is negative. There is slight elevation in total bilirubin to 1.3. Chest x-ray shows cardiomegaly, no significant pulmonary edema. CT abd/pelvis concerning for bile duct dilatation. US ordered. Signed out to dR. Shipman to follow up testing and disposition the patient. Scripts Aspirin (Tgt Aspirin) 81 Mg Chw 162 MG CHEW DAILY for Blood Clot Prevention, #30 EA Prov: Blanquita Gutierrez MD 02/20/17 Atorvastatin (Atorvastatin) 40 Mg Tab 40 MG PO HS for Cholesterol Management, #30 TAB Prov: Blanquita Gutierrez MD 02/20/17 Aleah Reyes MD Feb 17, 2017 18:19
[2017-02-17] MEDS ORDERED: IODIXANOL 320 MG/ML 10 ML VIAL (for Rad CT) IVCONTRAST ONE (18:34)
--- NOTE | 2017-02-17 18:53 | RADRPT ---
EXAM DATE/TIME: 02/17/2017 18:19 [facility] COMPARISON: No previous studies available for comparison. INDICATIONS : Epigastric pain. IV CONTRAST: 50 cc Visipaque (iodixanol) IV ORAL CONTRAST: No oral contrast ingested. RADIATION DOSE: 22.15 CTDIvol (mGy) MEDICAL HISTORY : Renal calculi. Gastroesophageal reflux disease. Dementia.Hypertension. SURGICAL HISTORY : Cholecystectomy. Hysterectomy. ENCOUNTER: Initial ACUITY: 3 months PAIN SCALE: 2/10 LOCATION: Epigastric TECHNIQUE: Volumetric scanning of the abdomen and pelvis was performed. Using automated exposure control and ad justment of the mA and/or kV according to patient size, radiation dose was kept as low as reasonably achievable to obtain optimal diagnostic quality images. DICOM format image data is available electro nically for review and comparison. FINDINGS: There is a large hiatal hernia containing half of the stomach. A 19 mm cyst is noted within the left lobe of the liver. No solid hepatic mass is noted. Mild central intrahepatic and extrahepatic biliary ductal dilatation is noted. Correlation with alkaline phosphatase and bilirubin levels is suggested to rule out biliary obstruction. The gallbladder has been resected. Biliary ductal dilatation may be related to reservoir phenomenon. The spleen is normal. The pancreas is also normal. There is a 15 mm cyst within the upper pole the right kidney. A 3 mm calcified nonobstructing right renal calculus is noted. No acute obstructive uropathy is noted the bowel aorta is calcified but is not grossly dilated . The inferior vena cava is normal no retroperitoneal lymphadenopathy is noted. Mesh repair of anteri or abdominal wall hernia has been performed. Uncomplicated colonic diverticulosis is noted. No acute diverticulitis is noted. The urinary bladder is unremarkable. Mild chronic compression deformity invo lving L1 is noted. Degenerative changes are noted throughout the thoracolumbar spine. The visualized lung bases are clear. CONCLUSION: 1. Large hiatal hernia containing half of the stomach. 2. Mild central intrahepatic and extra hepatic biliary ductal dilatation. Correlation with alkaline p hosphatase and bilirubin values is recommended to rule out biliary obstruction. [place] phenomenon should also be considered status post cholecystectomy. 3. Hepatic and right renal cysts. 4. 3 mm calcified nonobstructing right renal calculus. 5. Uncomplicated colonic diverticulosis. 6. Mild chronic compression deformity involving L1. 7. Degenerative changes throughout the thoracolumbar spine. John Angelo MD on February 17, 2017 at 18:43 Board Certified Radiologist. This report was verified electronically.
--- NOTE | 2017-02-17 19:27 | PD ---
Physical Exam Date Seen by Provider: Feb 17, 2017 Time Seen by Provider: 19:26 Narrative Accepted in transfer of care from Dr. Reyes Data Data Last Documented VS Vital Signs Date Time Temp Pulse Resp B/P (MAP) Pulse Ox O2 Delivery O2 Flow Rate FiO2 02/17/17 20:00 76 173/94 (120) 187/109 (135) 02/17/17 19:34 96 Room Air 02/17/17 19:32 16 02/17/17 17:15 98.9 Orders Orders Complete Blood Count With Diff (02/17/17 17:35) Comprehensive Metabolic Panel (02/17/17 17:35) Prothrombin Time / Inr (Pt) (02/17/17 17:35) Act Partial Throm Time (Ptt) (02/17/17 17:35) Troponin I (02/17/17 17:35) Lipase (02/17/17 17:35) Chest, Single Ap (02/17/17 17:35) Ecg Monitoring (02/17/17 17:35) Bilateral Bp Monitoring (02/17/17 17:35) Iv Access Insert/Monitor (02/17/17 17:35) Oximetry (02/17/17 17:35) Oxygen Administration (02/17/17 17:35) Sodium Chloride 0.9% Flush (Ns Flush) (02/17/17 17:45) B-Type Natriuretic Peptide (02/17/17 17:35) Ct Abd/Pel W Iv Contrast(Rout) (02/17/17 ) Acetamin-Hydrocod 325-5 Mg (Stewart 5-325 (02/17/17 17:45) Ondansetron Inj (Zofran Inj) (02/17/17 17:45) Iodixanol 320 Inj (Rad Ct) (Visipaque 32 (02/17/17 18:34) Us Abdomen Gallbladder (02/17/17 ) Aspirin Chew (Aspirin Chew) (02/18/17 09:00) Nitroglycerin 2% Oint (Nitroglycerin 2% (02/17/17 21:00) Ckmb (Isoenzyme) Profile (02/17/17 17:40) Electrocardiogram (02/17/17 17:16) Labs Laboratory Tests Test 02/17/17 17:40 White Blood Count 11.0 TH/MM3 Red Blood Count 4.41 MIL/MM3 Hemoglobin 13.4 GM/DL Hematocrit 41.3 % Mean Corpuscular Volume 93.7 FL Mean Corpuscular Hemoglobin 30.4 PG Mean Corpuscular Hemoglobin Concent 32.5 % Red Cell Distribution Width 14.4 % Platelet Count 193 TH/MM3 Mean Platelet Volume 10.4 FL Neutrophils (%) (Auto) 79.8 % Lymphocytes (%) (Auto) 9.9 % Monocytes (%) (Auto) 6.5 % Eosinophils (%) (Auto) 3.2 % Basophils (%) (Auto) 0.6 % Neutrophils # (Auto) 8.7 TH/MM3 Lymphocytes # (Auto) 1.1 TH/MM3 Monocytes # (Auto) 0.7 TH/MM3 Eosinophils # (Auto) 0.4 TH/MM3 Basophils # (Auto) 0.1 TH/MM3 CBC Comment DIFF FINAL Differential Comment Prothrombin Time 10.8 SEC Prothromb Time International Ratio 1.1 RATIO Activated Partial Thromboplast Time 28.5 SEC Blood Urea Nitrogen 22 MG/DL Creatinine 1.30 MG/DL Random Glucose 136 MG/DL Total Protein 7.0 GM/DL Albumin 3.0 GM/DL Calcium Level 9.9 MG/DL Alkaline Phosphatase 67 U/L Aspartate Amino Transf (AST/SGOT) 15 U/L Alanine Aminotransferase (ALT/SGPT) 14 U/L Total Bilirubin 1.3 MG/DL Sodium Level 140 MEQ/L Potassium Level 3.3 MEQ/L Chloride Level 102 MEQ/L Carbon Dioxide Level 28.5 MEQ/L Anion Gap 10 MEQ/L Estimat Glomerular Filtration Rate 39 ML/MIN Troponin I LESS THAN 0.02 NG/ML B-Type Natriuretic Peptide 200 PG/ML Lipase 108 U/L [facility] Medical Record Reviewed: Yes Supervised Visit with LEIA: No Interpretation(s) troponin i: less than 0.02, not elevated Last Impressions Chest X-Ray 02/17/17 1735 Signed Impressions: Service Date/Time: Friday, February 17, 2017 17:47 - CONCLUSION: 1. Cardiomegaly. No acute pulmonary disease. 2. Hiatal hernia Nabor Michael MD Gall Bladder Ultrasound 02/17/17 0000 Signed Impressions: Service Date/Time: Friday, February 17, 2017 19:11 - CONCLUSION: 1. Mild hepatomegaly. 2. Right renal cortical thinning. 3. Slight prominence of the main pancreatic duct which is nonspecific. John Angelo MD Abdomen/Pelvis CT 02/17/17 0000 Signed Impressions: Service Date/Time: Friday, February 17, 2017 18:19 - CONCLUSION: 1. Large hiatal hernia containing half of the stomach. 2. Mild central intrahepatic and extra hepatic biliary ductal dilatation. Correlation with alkaline phosphatase and bilirubin values is recommended to rule out biliary obstruction. [place] phenomenon should also be considered status post cholecystectomy. 3. Hepatic and right renal cysts. 4. 3 mm calcified nonobstructing right renal calculus. 5. Uncomplicated colonic diverticulosis. 6. Mild chronic compression deformity involving L1. 7. Degenerative changes throughout the thoracolumbar spine. John Angelo MD CBC & BMP Diagram 02/17/17 17:40 Total Protein 7.0, Albumin 3.0 L, Calcium Level 9.9, Alkaline Phosphatase 67, Aspartate Amino Transf (AST/SGOT) 15, Alanine Aminotransferase (ALT/SGPT) 14, Total Bilirubin 1.3 H Vital Signs Date Time Temp Pulse Resp B/P (MAP) Pulse Ox O2 Delivery O2 Flow Rate FiO2 02/17/17 20:00 76 173/94 (120) 187/109 (135) 02/17/17 19:34 63 96 Room Air 02/17/17 19:32 63 16 184/91 (122) 96 Nasal Cannula 02/17/17 17:15 98.9 86 20 162/82 (108) 97 Differential Diagnosis Accepted in transfer of care from Dr. Reyes; please refer to her dictation Narrative Course Accepted in transfer of care from Dr. 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
--- NOTE | 2017-02-17 20:03 | RADRPT ---
EXAM DATE/TIME: 02/17/2017 19:11 [facility] COMPARISON: No previous studies available for comparison. INDICATIONS : Right upper quadrant pain. MEDICAL HISTORY : Gastroesophageal reflux disease. Hypertension. Arthritis. Right upper quadrant pain. SURGICAL HISTORY : Tonsillectomy. Cholecystectomy. Hysterectomy. ENCOUNTER: Initial ACUITY: 2 days PAIN SCORE: 4/10 LOCATION: Right upper quadrant MEASUREMENTS: LIVER: 15.7 cm length COMMON DUCT: 6 mm RIGHT KIDNEY: 10.9 x 4.5 x 6.1 cm FINDINGS: LIVER: Mild hepatomegaly is noted. Normal echotexture without focal lesion or ductal dilatation. Hepatopetal flow is noted within the portal vein. COMMON DUCT: No intraluminal mass or stone visualized. GALLBLADDER: Status post cholecystectomy. PANCREAS: There is slight prominence of the main pancreatic duct. No mass is identified. RIGHT KIDNEY: There is diffuse cortical thinning of the right kidney. No evidence of hydronephrosis, stone, or mass . CONCLUSION: 1. Mild hepatomegaly. 2. Right renal cortical thinning. 3. Slight prominence of the main pancreatic duct which is nonspecific. John Angelo MD on February 17, 2017 at 19:59 Board Certified Radiologist. This report was verified electronically.
[2017-02-17] MEDS ORDERED: NITROGLYCERIN 2% OINT 1 GM PACKET TOPICAL ONE (21:00)
[2017-02-17] MEDS ORDERED: ONDANSETRON HCL 4 MG/2 ML VIAL IV PUSH PRN (21:15)
[2017-02-17] MEDS ORDERED: SODIUM CHLORIDE 0.9% FLUSH 10 ML FLUSH IV FLUSH PRN (21:15)
[2017-02-17] MEDS ORDERED: ACETAMINOPHEN 500 MG CPLT PO PRN (21:15)
[2017-02-17 21:19] LABS: CREATINE KINASE 30 U/L (26-192)
[2017-02-17] MEDS: HEPARIN SODIUM - SQ 10,000 UNITS/ML VIAL SQ SCH (21:53)
[2017-02-17 21:56] LABS: CREATINE KINASE 32 U/L (26-192)
[2017-02-17] MEDS ORDERED: POTASSIUM CHLORIDE 20 MEQ CONTROLLED RELEASE TAB PO ONE (22:00)
[2017-02-18] VITALS (8 sets, daily range): BP systolic 137–208; BP diastolic 75–93; PULSE 58–79; RESP 16–20; TEMP 97.4–98; O2SAT 92–96
[2017-02-18 01:30] LABS: CREATINE KINASE 25 U/L (26-192)
[2017-02-18] MEDS: HEPARIN SODIUM - SQ 10,000 UNITS/ML VIAL SQ SCH (05:22)
[2017-02-18] MEDS: ENALAPRIL MALEATE 10 MG TAB PO SCH ×2 (08:53→21:39)
[2017-02-18] MEDS: ALLOPURINOL 100 MG TAB PO SCH (08:53)
[2017-02-18] MEDS: ATENOLOL 25 MG TAB PO SCH ×2 (08:53→21:38)
[2017-02-18] MEDS: PANTOPRAZOLE SOD 20 MG DELAYED RELEASE TAB PO SCH ×2 (08:54→21:39)
[2017-02-18] MEDS: ASPIRIN 81 MG CHEW TAB CHEW SCH (08:54)
[2017-02-18] MEDS: PARoxetine HCL 20 MG TAB PO SCH (08:54)
[2017-02-18] MEDS: GABAPENTIN 100 MG CAP PO SCH ×3 (08:54→18:52)
[2017-02-18] MEDS: OXYBUTYNIN CHLORIDE 5 MG TAB PO SCH ×3 (08:55→18:52)
[2017-02-18] MEDS: SODIUM CHLORIDE 0.9% FLUSH 10 ML FLUSH IV FLUSH SCH ×2 (08:56→21:38)
[2017-02-18] MEDS ORDERED: APIXABAN 5 MG TABLET PO SCH (09:00)
[2017-02-18] MEDS ORDERED: INFLUENZA VIRUS VACCINE (QUADRIVALENT) 0.5 ML SYR IM ONE (09:00)
[2017-02-18 09:49] LABS: BICARBONATE 30.8 MEQ/L (21.0-32.0)
--- NOTE | 2017-02-18 11:33 | HHI.HP ---
HPI Service [facility] Primary Care Physician Non-Staff Admission Diagnosis chest pain Diagnoses: Chief Complaint: chest pain Travel History International Travel<30 Days: No Contact w/Intl Traveler <30 Da: No Traveled to Known Affected Are: No History of Present Illness 82-year-old white female being admitted for chest pain. Patient was in her usual state of health until yesterday morning at some point when she began experiencing a sudden onset of right-sided chest pain and shoulder pain with subsequent right hand numbness. She reports that the pain was pretty severe but is unable to identify any alleviating or exacerbating factors. She has had a cough days prior to this at which point her said she did have a tactile subjective fever. Was associated with some nausea, but no vomiting and no diarrhea. She denies any nesha shortness of breath. She decided come to the emergency room due to to her symptoms. Otherwise the patient states she is not hurting at this time. She denies ever having any cardiac history. She states that recently she lost one her daughters, and that her other daughter is flying in today into town. states that she has chronic lower extremity edema Review of Systems Except as stated in HPI: all other systems reviewed are Neg Past Family Social History Past Medical History Arthritis Anxiety Depression Cancer Dementia GERD Gout Past Surgical History BOWEL OBSTRUCTION IN 2001 Cholecystectomy Hysterectomy Tonsillectomy RIGHT KNEE ARTHROSCOPIC / OVARIAN TUMOR REMOVED Allergies: Coded Allergies: codeine (Verified Allergy, Severe, n/v, 02/17/17) meperidine (Verified Allergy, Unknown, 02/17/17) morphine (Verified Adverse Reaction, Severe, Confusion, 02/17/17) PT STATES SHE GOT OUT OF RESTRAINTS AND WAS PULLING AT EVERYTHING Family History Denies any family history of heart disease Social History Recently has a daughter, Used to smoke many years ago Physical Exam Vital Signs Vital Signs Date Time Temp Pulse Resp B/P (MAP) Pulse Ox O2 Delivery O2 Flow Rate FiO2 02/18/17 10:16 96 Nasal Cannula 2.00 02/18/17 08:00 97.4 68 20 208/93 (131) 96 02/18/17 04:52 98.0 78 18 163/89 (113) 95 02/18/17 00:00 97.9 79 16 149/79 (102) 94 02/17/17 23:50 97 Nasal Cannula 2.00 02/17/17 22:59 98.2 66 18 160/77 (104) 92 02/17/17 22:30 75 02/17/17 22:05 02/17/17 22:01 72 18 196/82 (120) 94 Room Air 02/17/17 20:00 76 173/94 (120) 187/109 (135) 02/17/17 19:34 63 96 Room Air 02/17/17 19:32 63 16 184/91 (122) 96 Nasal Cannula 02/17/17 17:15 98.9 86 20 162/82 (108) 97 Physical Exam VS: Afebrile GENERAL: Elderly white female, obese, no acute distress SKIN: Warm and dry. EYES: No scleral icterus. No injection or drainage. ENT: No nasal bleeding or discharge. Mucous membranes pink and moist. CARDIOVASCULAR: Regular rate and rhythm. no murmurs RESPIRATORY: No accessory muscle use. Clear to auscultation. Breath sounds equal bilaterally. GASTROINTESTINAL: Abdomen soft, non-tender, nondistended. Extremities: No clubbing, cyanosis, or edema. No obvious deformities. MUSCULOSKELETAL: Patient has intact range of motion including right shoulder abduction, abduction, and external rotation, negative Padgett test. She has mild tenderness to palpation over the right pectoral region but the patient states that this is not the same pain she experienced yesterday NEUROLOGICAL: Awake and alert. No obvious cranial nerve deficits. No facial droop nor slurred speech noted. PSYCHIATRIC: Appropriate mood and affect; insight and judgment normal. Laboratory Laboratory Tests Test 02/17/17 17:40 02/17/17 21:25 02/18/17 00:40 02/18/17 08:45 White Blood Count 11.0 Red Blood Count 4.41 Hemoglobin 13.4 Hematocrit 41.3 Mean Corpuscular Volume 93.7 Mean Corpuscular Hemoglobin 30.4 Mean Corpuscular Hemoglobin Concent 32.5 Red Cell Distribution Width 14.4 Platelet Count 193 Mean Platelet Volume 10.4 Neutrophils (%) (Auto) 79.8 Lymphocytes (%) (Auto) 9.9 Monocytes (%) (Auto) 6.5 Eosinophils (%) (Auto) 3.2 Basophils (%) (Auto) 0.6 Neutrophils # (Auto) 8.7 Lymphocytes # (Auto) 1.1 Monocytes # (Auto) 0.7 Eosinophils # (Auto) 0.4 Basophils # (Auto) 0.1 CBC Comment DIFF FINAL Differential Comment Prothrombin Time 10.8 Prothromb Time International Ratio 1.1 Activated Partial Thromboplast Time 28.5 Blood Urea Nitrogen 22 21 Creatinine 1.30 1.20 Random Glucose 136 106 Total Protein 7.0 Albumin 3.0 Calcium Level 9.9 10.2 Alkaline Phosphatase 67 Aspartate Amino Transf (AST/SGOT) 15 Alanine Aminotransferase (ALT/SGPT) 14 Total Bilirubin 1.3 Sodium Level 140 141 Potassium Level 3.3 4.0 Chloride Level 102 103 Carbon Dioxide Level 28.5 30.8 Anion Gap 10 7 Estimat Glomerular Filtration Rate 39 43 Total Creatine Kinase 30 32 25 Troponin I LESS THAN 0.02 LESS THAN 0.02 LESS THAN 0.02 B-Type Natriuretic Peptide 200 Lipase 108 Result Diagram: 02/17/17 1740 02/18/17 0845 Imaging Last Impressions Chest X-Ray 02/17/17 1735 Signed Impressions: Service Date/Time: Friday, February 17, 2017 17:47 - CONCLUSION: 1. Cardiomegaly. No acute pulmonary disease. 2. Hiatal hernia Nabor Michael MD Gall Bladder Ultrasound 02/17/17 0000 Signed Impressions: Service Date/Time: Friday, February 17, 2017 19:11 - CONCLUSION: 1. Mild hepatomegaly. 2. Right renal cortical thinning. 3. Slight prominence of the main pancreatic duct which is nonspecific. John Angelo MD Abdomen/Pelvis CT 02/17/17 0000 Signed Impressions: Service Date/Time: Friday, February 17, 2017 18:19 - CONCLUSION: 1. Large hiatal hernia containing half of the stomach. 2. Mild central intrahepatic and extra hepatic biliary ductal dilatation. Correlation with alkaline phosphatase and bilirubin values is recommended to rule out biliary obstruction. [place] phenomenon should also be considered status post cholecystectomy. 3. Hepatic and right renal cysts. 4. 3 mm calcified nonobstructing right renal calculus. 5. Uncomplicated colonic diverticulosis. 6. Mild chronic compression deformity involving L1. 7. Degenerative changes throughout the thoracolumbar spine. John W. Angelo, MD Caprini VTE Risk Assessment Caprini VTE Risk Assessment: Mod/High Risk (score >= 2) Caprini Risk Assessment Model Point Value = 1 Point Value = 2 Point Value = 3 Point Value = 5 Age 41-60 Minor surgery BMI > 25 kg/m2 Swollen legs Varicose veins or History of unexplained or recurrent spontaneous Oral contraceptives or hormone replacement Sepsis (< 1 month) Serious lung disease, including pneumonia (< 1 month) Abnormal pulmonary function Acute myocardial infarction Congestive heart failure (< 1 month) History of inflammatory bowel disease Medical patient at bed rest Age 61-74 Arthroscopic surgery Major open surgery (> 45 min) Laparoscopic surgery (> 45 min) Malignancy Confined to bed (> 72 hours) Immobilizing plaster cast Central venous access Age >= 75 History of VTE Family history of VTE Factor V Leiden Prothrombin [id number] Lupus anticoagulant Anticardiolipin antibodies Elevated serum homocysteine Heparin-induced thrombocytopenia Other congenital or acquired thrombophilia Stroke (< 1 month) Elective arthroplasty Hip, pelvis, or leg fracture Acute spinal cord injury (< 1 month) Prophylaxis Regimen Total Risk Factor Score Risk Level Prophylaxis Regimen 0-1 Low Early ambulation 2 Moderate Order ONE of the following: *Sequential Compression Device (SCD) *Heparin 5000 units SQ BID 3-4 Higher Order ONE of the following medications: *Heparin 5000 units SQ TID *Enoxaparin/Lovenox 40 mg SQ daily (WT < 150 kg, CrCl > 30 mL/min) *Enoxaparin/Lovenox 30 mg SQ daily (WT < 150 kg, CrCl > 10-29 mL/min) *Enoxaparin/Lovenox 30 mg SQ BID (WT < 150 kg, CrCl > 30 mL/min) AND/OR *Sequential Compression Device (SCD) 5 or more Highest Order ONE of the following medications: *Heparin 5000 units SQ TID (Preferred with Epidurals) *Enoxaparin/Lovenox 40 mg SQ daily (WT < 150 kg, CrCl > 30 mL/min) *Enoxaparin/Lovenox 30 mg SQ daily (WT < 150 kg, CrCl > 10-29 mL/min) *Enoxaparin/Lovenox 30 mg SQ BID (WT < 150 kg, CrCl > 30 mL/min) AND *Sequential Compression Device (SCD) Assessment and Plan Assessment and Plan 82-year-old white female being admitted for chest pain Chest pain - Independently reviewed EKG which shows A. fib - Troponins have been negative; we'll proceed with nuclear stress test afib - atenolol and eliquis, currently rate controlled HTN - enalapril chronic pain - tramadol and gabapentin continue home paroxetin Patient has a large hiatal hernia involving her stomach in the abdomen based upon the CT findings. Repeating LFTs DVT prevention - eliquis Addendum: Stress test is positive, case discussed with cardiology, will transfer patient to [facility] for possible catheterization on Monday. Starting lipitor, continue aspirin. holding eliquis. Pradeep Man MD Feb 18, 2017 11:33
[2017-02-18 13:06] LABS: TOTAL BILIRUBIN ADULT 1.3 MG/DL (0.2-1.0)
[2017-02-18 13:13] LABS: INDIRECT BILIRUBIN 1.1 MG/DL (0.0-0.8)
[2017-02-18] MEDS ORDERED: REGADENOSON INJ 0.4 MG/5 ML SYR IV ONE (13:50)
--- NOTE | 2017-02-18 13:56 | EKG ---
Date Performed: 02/17/2017 Time Performed: 17:16:00 PTAGE: 82 years EKG: ATRIAL FIBRILLATION MARKED RIGHT AXIS DEVIATION RIGHT BUNDLE BRANCH BLOCK ST DEPRESSION, CO NSIDER SUBENDOCARDIAL INJURY ABNORMAL ECG Compared to PREVIOUS TRACING , the right bundle branch block is new and the fairly pronounced ST & T change anteriorly or some changes inferiorly, are also new. Clinical correlation recommended. PREVIOU S TRACIN03/27/2015 14.50 DOCTOR: Guanakito Devi Interpretating Date/Time 02/18/2017 13:54:53
--- NOTE | 2017-02-18 13:56 | EKG ---
Date Performed: 02/17/2017 Time Performed: 21:29:35 PTAGE: 82 years EKG: ATRIAL FIBRILLATION RIGHT BUNDLE BRANCH BLOCK ST & T CHANGES INFERIOLATERALLY PRESENT ABNOR MAL ECG Compared to PREVIOUS TRACING , the ST & T changes have improved anteriorly to some degree. PREVIOUS T RACIN02/17/2017 17.16 DOCTOR: Guanakito Devi Interpretating Date/Time 02/18/2017 13:56:11
--- NOTE | 2017-02-18 13:59 | EKG ---
Date Performed: 02/18/2017 Time Performed: 08:45:26 PTAGE: 82 years EKG: ATRIAL FIBRILLATION RIGHT BUNDLE BRANCH BLOCK ST & T CHANGES ANTERIORLY AND INFERIORLY Comp ared to previous tracing, there may be slight increase in ST change anteriorly, otherwise no signific ant change. ABNORMAL ECG PREVIOUS TRACING : 02/17/2017 23.58 DOCTOR: Guanakito Devi Interpretating Date/Time 02/18/2017 13:58:57
--- NOTE | 2017-02-18 13:59 | EKG ---
Date Performed: 02/17/2017 Time Performed: 23:58:01 PTAGE: 82 years EKG: ATRIAL FIBRILLATION RIGHT BUNDLE BRANCH BLOCK NONSPECIFIC ST & T CHANGES ANTERIORLY Compare d to previous tracing, the anterior ST & T changes have improved to some degree. ABNORMAL ECG PREVIOUS TRACING : 02/17/2017 21.29 DOCTOR: Guanakito Devi Interpretating Date/Time 02/18/2017 13:57:20
--- NOTE | 2017-02-18 14:04 | RADRPT ---
EXAM DATE/TIME: 02/18/2017 12:42 [facility] COMPARISON: No previous studies available for comparison. INDICATIONS : Mid chest pain for two weeks. Angina. Atrial fibrillation. DOSE: 35.0 mCi Tc99m Myoview at stress. 11.0 mCi Tc99m Myoview at rest. 0.4 mg Lexiscan STRESS SYMPTOMS: None noted. EJECTION FRACTION: 42% MEDICAL HISTORY : Hypertension. Dementia. Carcinoma, ovarian. SURGICAL HISTORY : Hysterectomy. Cholecystectomy. ENCOUNTER: Initial ACUITY: 2 weeks PAIN SCALE: 5/10 LOCATION: Midsternal chest TECHNIQUE: The patient underwent pharmacologic stress with infusion of prescribed dose. Continuous ECG tracing was monitored during stress. Gated SPECT imaging was performed after stress and conventional SPECT i maging was performed at rest. The examination was performed on a SPECT/CT scanner, both attenuation and non-corrected datasets were reviewed. FINDINGS: DISTRIBUTION: The maximum perfused segment at stress is in the lateral wall. PERFUSION STUDY: There appears to be some mild diminished perfusion along the lateral wall on the stress images. On th e non-a.c. images, there appears to be some mild redistribution lungs the lateral wall. GATED STUDY: There appears to be some hypokinesis of the lateral wall. CONCLUSION: 1. There appears to be some mild redistribution of the lateral wall on the non-a.c. images. This sugg ests some ischemic myocardial changes. There is also some hypokinesis of the lateral wall. 2. Cardiac ejection fraction is mildly decreased at 42%. RISK CATEGORY: Intermediate Tima Lagos MD on February 18, 2017 at 14:00 Board Certified Radiologist. This report was verified electronically.
[2017-02-18] MEDS: NITROGLYCERIN 2% OINT 1 GM PACKET TOPICAL SCH ×3 (14:15→23:11)
--- NOTE | 2017-02-18 15:17 | TR ---
Date Performed: 02/18/2017 Time Performed: 13:09:05 DOCTOR: Guanakito Devi DRUG LIST: CLINICAL HISTORY: CHEST PAIN REASON FOR TEST: Chest pain REASON FOR ENDING: OBSERVATION: CONCLUSION: Lexiscan stress test was performed under standard four minute protocol. Radionucl[place] e was injected one minute prior to ending the test. No electrocardiographic abormalities were present to suggest ischemia. Nuclear imaging and interpretation are pending. COMMENTS:
[2017-02-18] MEDS: ATORVASTATIN 40 MG TAB PO SCH (21:39)
[2017-02-18 21:50] LABS: HDL CHOLESTEROL 39.5 MG/DL (40.0-60.0)
[2017-02-19] VITALS (26 sets, daily range): BP systolic 118–140; BP diastolic 54–81; PULSE 44–74; RESP 14–17; TEMP 97.2–98.5; O2SAT 93–97
[2017-02-19] MEDS: NITROGLYCERIN 2% OINT 1 GM PACKET TOPICAL SCH ×4 (06:30→23:14)
[2017-02-19] MEDS: ATENOLOL 25 MG TAB PO SCH ×2 (09:45→21:08)
[2017-02-19] MEDS: ASPIRIN 81 MG CHEW TAB CHEW SCH (09:45)
[2017-02-19] MEDS: GABAPENTIN 100 MG CAP PO SCH ×3 (09:45→18:08)
[2017-02-19] MEDS: ALLOPURINOL 100 MG TAB PO SCH (09:45)
[2017-02-19] MEDS: PARoxetine HCL 20 MG TAB PO SCH (09:45)
[2017-02-19] MEDS: SODIUM CHLORIDE 0.9% FLUSH 10 ML FLUSH IV FLUSH SCH ×2 (09:46→21:09)
[2017-02-19] MEDS: OXYBUTYNIN CHLORIDE 5 MG TAB PO SCH ×3 (09:46→18:08)
[2017-02-19] MEDS: ENALAPRIL MALEATE 10 MG TAB PO SCH ×2 (09:46→21:08)
[2017-02-19] MEDS: PANTOPRAZOLE SOD 20 MG DELAYED RELEASE TAB PO SCH ×2 (09:47→21:08)
--- NOTE | 2017-02-19 10:11 | HHI.PR ---
Subjective Remarks She is in bed, appears in acute distress at this time. No chest pain or shortness of breath overnight. No lightheadedness or nausea. She feels very tired. Plan for cardiac catheter tomorrow family will visit one of her daughters. Objective Vitals Vital Signs Date Time Temp Pulse Resp B/P (MAP) Pulse Ox O2 Delivery O2 Flow Rate FiO2 02/19/17 09:00 56 02/19/17 08:51 97.8 62 16 140/70 (93) 95 02/19/17 08:00 44 02/19/17 07:00 56 02/19/17 06:00 54 02/19/17 05:00 50 02/19/17 04:00 56 02/19/17 03:00 58 02/19/17 02:00 58 02/19/17 01:00 97.7 65 14 136/77 (96) 93 02/18/17 20:15 92 21 02/18/17 20:00 97.9 76 16 137/75 (95) 93 02/18/17 16:00 97.7 58 18 137/83 (101) 93 02/18/17 12:00 97.8 67 20 195/89 (124) 94 02/18/17 10:16 96 Nasal Cannula 2.00 I/O 02/18/17 02/18/17 02/18/17 02/19/17 02/19/17 02/19/17 07:00 15:00 23:00 07:00 15:00 23:00 Intake Total 100 ml 450 ml 222 ml Balance 100 ml 450 ml 222 ml Intake Oral 100 ml 450 ml 222 ml # Voids 1 2 1 # Bowel Movements 0 2 Result Diagram: 02/17/17 1740 02/18/17 0845 Imaging Last Impressions Myocardial Perfusion Scan Nuc Med 02/18/17 0000 Signed Impressions: Service Date/Time: Saturday, February 18, 2017 12:42 - CONCLUSION: 1. There appears to be some mild redistribution of the lateral wall on the non-a.c. images. This suggests some ischemic myocardial changes. There is also some hypokinesis of the lateral wall. 2. Cardiac ejection fraction is mildly decreased at 42%%. RISK CATEGORY: Intermediate Tima Lagos MD Chest X-Ray 02/17/17 1739 Signed Impressions: Service Date/Time: Friday, February 17, 2017 17:47 - CONCLUSION: 1. Cardiomegaly. No acute pulmonary disease. 2. Hiatal hernia Nabor Michael MD Gall Bladder Ultrasound 02/17/17 0000 Signed Impressions: Service Date/Time: Friday, February 17, 2017 19:11 - CONCLUSION: 1. Mild hepatomegaly. 2. Right renal cortical thinning. 3. Slight prominence of the main pancreatic duct which is nonspecific. John Angelo MD Abdomen/Pelvis CT 02/17/17 0000 Signed Impressions: Service Date/Time: Friday, February 17, 2017 18:19 - CONCLUSION: 1. Large hiatal hernia containing half of the stomach. 2. Mild central intrahepatic and extra hepatic biliary ductal dilatation. Correlation with alkaline phosphatase and bilirubin values is recommended to rule out biliary obstruction. [place] phenomenon should also be considered status post cholecystectomy. 3. Hepatic and right renal cysts. 4. 3 mm calcified nonobstructing right renal calculus. 5. Uncomplicated colonic diverticulosis. 6. Mild chronic compression deformity involving L1. 7. Degenerative changes throughout the thoracolumbar spine. John Angelo MD Objective Remarks GENERAL: Elderly white female, obese, no acute distress CARDIOVASCULAR: Regular rate and rhythm. no murmurs RESPIRATORY: No accessory muscle use. Clear to auscultation. Breath sounds equal bilaterally. GASTROINTESTINAL: Abdomen soft, non-tender, nondistended. Extremities: No clubbing, cyanosis, or edema. No obvious deformities. MUSCULOSKELETAL: Patient has intact range of motion including right shoulder abduction, abduction, and external rotation, negative Padgett test. She has mild tenderness to palpation over the right pectoral region but the patient states that this is not the same pain she experienced yesterday NEUROLOGICAL: Awake and alert. No obvious cranial nerve deficits. No facial droop nor slurred speech noted. PSYCHIATRIC: Appropriate mood and affect; insight and judgment normal. A/P Assessment and Plan 82-year-old white female being admitted for chest pain Chest pain Independently reviewed EKG which shows A. fib Troponins have been negative; we'll proceed with nuclear stress test Stress test is positive, cardiology following, plan for catheterization on Monday. Starting lipitor, continue aspirin. holding eliquis. afib - atenolol and eliquis, currently rate controlled HTN Enalapril Chronic pain Tramadol and gabapentin Continue home paroxetin Patient has a large hiatal hernia involving her stomach in the abdomen based upon the CT findings. Repeating LFTs DVT prevention - SCD/TEDsrichard on hold for poss cardiac cath. DC plan: Plan for cardiac cath tomorrow Blanquita Gutierrez MD Feb 19, 2017 10:10
--- NOTE | 2017-02-19 11:35 | MB ---
cc: SHERLEY MORAES DO DATE OF CONSULTATION: February 19, 2017 REASON FOR CONSULTATION Abnormal stress test. HISTORY OF PRESENT ILLNESS Judith Navarro is a pleasant 82-year-old female who sees my partner Dr. Sewell in the office and presented to [facility] due to right-sided chest pain, shoulder pain and subsequent right hand numbness. She states that nothing seemed to make it better or worse. She denies shortness of breath, nausea or vomiting with the episode. Because of her atypical chest pain she underwent stress testing which showed possible lateral ischemia and was then transferred to [facility] for consideration of cardiac catheterization. Of note, the patient just lost one daughter and is depressed due to this. Apparently last night she had some sundowning and was violent towards the staff. In seeing her this morning she is pleasant. Overall, at this time she denies chest pain or shortness of breath. PAST MEDICAL HISTORY 1. Arthritis. 2. Anxiety. 3. Depression. 4. Dementia. 5. Unspecified cancer. 6. Gastroesophageal reflux disease. 7. Gout. 8. Atrial fibrillation. PAST SURGICAL HISTORY 1. Bowel obstruction. 2. Cholecystectomy. 3. Hysterectomy. 4. Tonsillectomy. 5. Right knee arthroscopy. 6. Ovarian tumor removed. ALLERGIES 1. CODEINE. 2. MEPERIDINE. 3. MORPHINE. MEDICATIONS 1. Eliquis 5 mg b.i.d. 2. Atenolol 25 mg b.i.d. 3. Enalapril 10 mg b.i.d. 4. Tramadol 50 mg t.i.d. as needed for pain. 5. Gabapentin 200 mg t.i.d. 6. Paroxetine 20 mg daily. 7. Omeprazole 20 mg b.i.d. 8. Oxybutynin 5 mg t.i.d. 9. Allopurinol 100 mg daily. FAMILY HISTORY Denies premature coronary artery disease or sudden cardiac within the family. SOCIAL HISTORY The patient previously smoked a number of years ago but quit. She denies alcohol or drug abuse. She recently lost a daughter. REVIEW OF SYSTEMS 14-systems were reviewed including osteopathic pertinent positives and negatives above, otherwise negative. PHYSICAL EXAMINATION VITAL SIGNS: Temperature 97.8, heart rate 62, blood pressure 140/70, respirations 16, pulse ox 95% on room air. GENERAL: The patient appears well, in no acute distress, alert and awake. HEENT: Extraocular muscles are intact. Mucous membranes moist. NECK: Supple. No JVD at 45 degrees. No carotid bruits heard bilaterally. HEART: Heart is regular rate and rhythm. Positive first and second heart sounds with a 1/6 crescendo-decrescendo murmur to the right sternal border. LUNGS: Clear to auscultation bilaterally. No wheezes, rales or rhonchi. ABDOMEN: Soft, nontender, nondistended. No organomegaly noted. EXTREMITIES: Show no clubbing, cyanosis or edema. Femoral and distal pulses intact bilaterally. NEUROLOGIC: No focal deficits. SKIN: Warm, dry and intact. OSTEOPATHIC: Mild kyphoscoliosis, no lordosis or paraspinal tender points. LABORATORY FINDINGS Hemoglobin 13.4, hematocrit 41.3, platelets 193. Potassium 4.0, BUN 21, creatinine 1.2, troponin negative x3. Electrocardiogram (February 18, 2017 at 0845) atrial fibrillation, right bundle branch block, ST-T wave changes, cannot exclude ischemia. IMPRESSION 1. Atypical chest pain for coronary insufficiency. 2. Abnormal stress test. 3. Atrial fibrillation. 4. Hypertension. 5. Dementia. RECOMMENDATIONS 1. Ms. Navarro presented with chest pain and underwent stress testing which showed possible lateral ischemia. Because of this she will be recommended cardiac catheterization. 2. Because of the concern for dementia, this will have to be discussed with her and possible daughter for consents. 3. We will check a 2-D echo to look at her overall left ventricular function, cardiac structure and possible valvulopathies. 4. Her Eliquis will be held. 5. She will be n.p.o. after midnight with a plan for cardiac catheterization in the morning. Thank you for allowing me to see Judith Navarro, if there are any questions please do not hesitate to call. Sherley Moraes DO VGP/TLL /10:31 AM /11:15 AM
[2017-02-19 18:11] LABS: ALT (GPT) 16 U/L (10-53)
[2017-02-19 18:13] LABS: ALKALINE PHOSPHATASE 73 U/L (45-117); TOTAL BILIRUBIN ADULT 0.9 MG/DL (0.2-1.0)
[2017-02-19 18:18] LABS: ANION GAP 4 MEQ/L (5-15); AST (GOT) 24 U/L (15-37); BICARBONATE 32.6 MEQ/L (21.0-32.0); BLOOD UREA NITROGEN 24 MG/DL (7-18); CHLORIDE 102 MEQ/L (98-107); GLOMERULAR FILTRATION RATE 31 ML/MIN (>89); SODIUM (NA) 139 MEQ/L (136-145)
[2017-02-19 18:21] LABS: POTASSIUM 4.2 MEQ/L (3.5-5.1)
[2017-02-19] MEDS: ATORVASTATIN 40 MG TAB PO SCH (21:08)
[2017-02-20] VITALS (17 sets, daily range): BP systolic 113–142; BP diastolic 60–85; PULSE 50–67; RESP 16–18; TEMP 95.7–97.7; O2SAT 90–94
[2017-02-20] MEDS: NITROGLYCERIN 2% OINT 1 GM PACKET TOPICAL SCH ×2 (07:00→11:57)
[2017-02-20 07:35] LABS: AUTOMATED NEUTROPHIL # 4.5 TH/MM3 (1.8-7.7); BASOPHIL % 0.7 % (0.0-2.0); EOSINOPHIL # 0.4 TH/MM3 (0-0.4); EOSINOPHIL % 5.4 % (0.0-4.0); HEMO FLAGS DIFF FINAL; LYMPH % 19.3 % (9.0-44.0); LYMPHOCYTE # 1.3 TH/MM3 (1.0-4.8); MEAN CELL VOLUME 96.4 FL (80.0-100.0); MEAN CORPUSCULAR HEMOGLOBIN 31.5 PG (27.0-34.0); MEAN CORPUSCULAR HGB CONC 32.7 % (32.0-36.0); MONO % 9.7 % (0.0-8.0); NEUT % 64.9 % (16.0-70.0); PLATELET COUNT 188 TH/MM3 (150-450); RED BLOOD COUNT 4.15 MIL/MM3 (4.00-5.30)
[2017-02-20] MEDS: OXYBUTYNIN CHLORIDE 5 MG TAB PO SCH ×2 (07:57→11:57)
[2017-02-20] MEDS: ASPIRIN 81 MG CHEW TAB CHEW SCH (07:57)
[2017-02-20] MEDS: ENALAPRIL MALEATE 10 MG TAB PO SCH (07:57)
[2017-02-20] MEDS: GABAPENTIN 100 MG CAP PO SCH ×2 (07:57→11:57)
[2017-02-20] MEDS: PARoxetine HCL 20 MG TAB PO SCH (07:57)
[2017-02-20] MEDS: PANTOPRAZOLE SOD 20 MG DELAYED RELEASE TAB PO SCH (07:57)
[2017-02-20] MEDS: ATENOLOL 25 MG TAB PO SCH (07:57)
[2017-02-20] MEDS: ALLOPURINOL 100 MG TAB PO SCH (07:57)
[2017-02-20] MEDS: SODIUM CHLORIDE 0.9% FLUSH 10 ML FLUSH IV FLUSH SCH (07:58)
[2017-02-20 08:06] LABS: BICARBONATE 31.6 MEQ/L (21.0-32.0)
[2017-02-20] MEDS ORDERED: VERAPAMIL HCL 5 MG/2 ML VIAL ONE (08:47)
[2017-02-20] MEDS ORDERED: HEPARIN SODIUM - IV 10,000 UNITS/10 ML VIAL ONE (08:47)
[2017-02-20] MEDS ORDERED: NITROGLYCERIN INJ 5 ML ONE (08:47)
[2017-02-20] MEDS ORDERED: HEPARIN-NS/PF INJ 1,500 ML ONE (08:47)
[2017-02-20] MEDS ORDERED: HEPARIN-NS/PF INJ 500 ML ONE (09:00)
[2017-02-20] MEDS ORDERED: MISC INFORMATION XX ONE (09:30)
--- NOTE | 2017-02-20 09:38 | CATHPROC ---
[facility] HIS Report Study Information Study Number Admission Scheduled Start Study Start [id number] Feb 17 2017 9:09PM 02/19/2017 Feb 20 2017 8:20AM [facility] Cardiac Catheterization Admit Source Facility Department Emergency department [facility] - [facility] Physician and Clinical Staff Initial Alex Haider Bracelet Maker Novelty Yelitza Gil BSN Recorder Anna Dawson,RT(R) Scrub Chaka Moreno RCIS(BS) Procedures Performed Procedure Location (Site) Vessel Name Coronary Angiograms LCA Left Coronary Coronary Angiograms RCA Right Coronary L Heart Cath Equipment Time Engineered Wood Designer Description Size Mfg Part Number Used/Scraped TRANSDUCER, TRUWAVE [id number] 08:22 CRUZ ARNDT * Used W/STOCKCOCK *[id number] *[id number] 08:22 [employer] PACK, CCL CUSTOM * Used *[id number] 08:22 [employer] SUPPORT, ARTERIAL ADULT 93858 *[id number] Used [id number] 09:14 MEDTRONIC JL 4.0 DXTERITY CATHETER FR 5 Used *[id number] BAND, RADIAL COMPRESSION TR [id number] 09:20 Globel Direct MEDICAL 29CM Used LARGE 29 *[id number] 08:22 Driverdo WIRE, EXCHANGE 260CM 3MMJ 260CM Used *[id number] 08:22 NAMIC MANIFOLD, 4 PORT * Used *[id number] 08:22 NYCOMED OMNIPAQUE, 350 MG, 150ML 150ML [id number] Used [id number] 08:22 BECKER MEDICAL BLANKET,WARM AIR CCL * Used *[id number] SHEATH, FR6 TRANSRADIAL [id number] 08:22 Proofpoint FR 6 Used SLENDER 10CM *[id number] History: Current Medications Medication Dosage/Unit Route Frequency Last Date/Time Taken ELIQUIS Allopurinol LIPITOR ASA Neurontin Beta Jem Statins (any) History: Allergies Allergy Reaction codeine n/v Demerol morphine Confusion meperidine History: Risk Factors Family History of Hypertension Dyslipidemia Previous ME Previous Heart Failure Premature CAD Yes Yes No No No Prior Valve Prior PCI Prior CABG Surgery No No No Cerebrovascular Peripheral Artery Chronic Lung On Dialysis Diabetes Disease Disease Disease No No No No No History: Symptoms/Diagnosis Selection Items Chest pain History: Stress Tests Stress or Imaging Studies Performed Yes Standard Exercise Stress Test No Stress Echo No Stress Test SPECT Stress Test SPECT Result Stress Test SPECT Ischemia Risk/Extent Yes Positive Intermediate Stress Test CMR No Cardiac CTA Coronary Calcium Score No No History: Arrhythmias Selection Items Atrial fibrillation History: Other Disease Selection Items Gerd History: Other Current Smoker Method Quit Packs a Day Years Used Pack Years No Cigarettes 17 Years Ago 1 20 20 Labs Hgb (g/dl) Hct (%) WBC (l/cumm) Platelets (thousands) 11.60-17.00 35.00-51.00 4.00-11.00 150.00-450.00 13.1 40 7 188 Glucose (mg/dl) BUN (mg/dl) Creatinine (mg/dl) BUN:Creatinine (1:x) 74.00-106.00 7.00-18.00 0.50-1.30 10.00-20.00 34 23 1.4 16.4 Na (meq/l) K (meq/l) 136.00-145.00 3.50-5.10 138 4.6 INR (PTT:PT) 0.90-1.10 1.1 Troponin I (ng/ml) CPK (u/l) CPK-MB (ng/ML) 0.02-0.05 26.00-308.00 0.50-3.60 0.02 25 Not Drawn Medication Medication Total Dose (Bolus/Oral) Medication Total Dosage/Unit 1% XYLOCAINE 20 mL FENTANYL 25 mcg NITRO OINTMENT 1 inches RADIAL COCKTAIL 5 mL (Bolus) Medications (Bolus/Oral) Medication Time Given Dosage/Unit Administered By Reason NITRO OINTMENT 02/20/2017 8:41:46 AM 1 inches Patient arrived on 1 inches NITRO OINTMENT in Left shoulder via Peripheral IV. 1% XYLOCAINE 02/20/2017 9:07:44 AM 20 mL Alex Miller 20 mL 1% XYLOCAINE given in lab by Alex Miller in Right Radial via Subcutaneous. FENTANYL 02/20/2017 9:08:03 AM 25 mcg Yelitza Gil 25 mcg FENTANYL given in lab by Yelitza Gil BSN in Left Antecubital via Peripheral IV. Order ed by Alex Miller. RADIAL COCKTAIL 02/20/2017 9:09:04 AM 5 mL (Bolus) Alex Miller 5 mL (Bolus) RADIAL COCKTAIL given in lab by Alex Miller in Right Radial via Radial. Using [S olution Name]. Reason: Ntg 200mcg Verapamil 2.5mg Heparin 5000U. Medication (Drip) Medication Time Given Dosage/Unit Concentration/Unit Diluent (ml) Solution IV Solutions 02/20/2017 8:41:46 AM 50 mL (IV) NaCl .9 IV Solutions given in lab by Yelitza Gil BSN in Left Antecubital via Peripheral IV. Pump/Dri p Flow using NaCl .9. Ordered by Alex Miller. Initial Case Assessment Cardiovascular HR Rhythm NIBP Chest Pain 56 a-fib 136/108 0 Edema Present Skin color Skin Moderate Normal Warm Dry Circulatory - Right Pulses Dorsalis Pedis Femoral Radial 2 2 2 Scale (0,1,2,3,4,d) Scale (0,1,2,3,4,d) Neurological State Oriented to time-place- Alert Moves all extremities person Respiration - General Respiration Rate SpO2 (%) (B/min) 17 97 Chronological Log Time Study Chronological Log 8:37:09 Patient arrived via Bed. 8:41:29 Patient Name, D.O.B, / Armband Verified By R.N. 8:41:30 Consent signed by the physician and the patient and verified by the [facility] staff. 8:41:30 Pre-op and post- op instructions given; patient acknowledges understanding of instructions . 8:41:31 Verbal Stimulation=2 Physical Stimulation=2 Airway=2 Respiration=2 TOTAL=8. (0=absent, 1=l imited, 2=present) 8:41:32 Presedation assessment performed by [facility] RN. 8:41:37 Allens test performed on the right radial and ulnar artery. 8:41:39 Patient has been NPO for More than 6Hrs. 8:41:43 Skin Breakdown- bruise on right forearm 8:41:43 Patient Warmer Placed on the Table. 8:41:44 Marya Prominences Protected 8:41:45 A # 20 IV was noted in the Antecubital (left). Grade = 0 8:41:46 Patient arrived on 1 inches NITRO OINTMENT in Left shoulder via Peripheral IV. IV Solutions given in lab by Yelitza Gil BSN in Left Antecubital via Peripheral IV. Pum p/Drip Flow using NaCl 8:41:46 .9. Ordered by Alex Miller 8:41:47 History and physical on the chart or being dictated. Assessment: Initial Case, HR=56 BPM, Rhythm=a-fib, VZJW=069/108 mmhg, Chest Pain=0, Edema=Mod, Color=Normal, Skin = Warm, Dry 8:41:49 Right Pulses: Felix Ped=2, Femoral=2, Radial=2 Neurological: State=Alert, Ox3, WETZEL Respiration: Resp=17 B/min, SpO2=97 % Vitals capture started with the following parameters, Patient=Adult, Interval=5 min, Initial Pre mcldv=138 mmHg, 8:47:28 Deflation Rate=5 mmHg, Cuff placed on Left Arm 8:48:10 HR=56 bpm, BEDY=926/108 mmhg, SpO2=97.0 %, Resp=18 B/min 8:49:24 Reference ECG taken 8:52:51 Right Radial and right groin prepped with 2% chlorhexidine, and draped after a 3 min. waitin g time. 8:53:56 HR=59 bpm, UUGW=475/81 mmhg, SpO2=99 %, Resp=10 B/min 8:58:06 HR=52 bpm, ECTO=674/92 mmhg, SpO2=93 %, Resp=12 B/min 8:58:09 MD paged 9:01:35 MD arrived. 9:02:36 Pressure channel 1 zeroed. 9:03:03 HR=49 bpm, DXIO=804/97 mmhg, SpO2=90.0 %, Resp=15 B/min Time Out. Correct patient, correct procedure, correct physician, power injector loaded, or not l oaded with contrast with 9:06:39 surgical team present. Time Out Concurred by MD and individual staff in procedure. 9:07:03 Case Start 9:07:44 20 mL 1% XYLOCAINE given in lab by Alex Miller in Right Radial via Subcutaneous. 25 mcg FENTANYL given in lab by Yelitza Gil BSN in Left Antecubital via Peripheral IV. Ordered by Paul, 9:08:03 Alex Bolaños 9:08:04 HR=59 bpm, KVJX=405/98 mmhg, SpO2=90.0 %, Resp=10 B/min 9:08:40 Access site was Right Radial Artery. A SHEATH, FR6 TRANSRADIAL SLENDER 10CM FR 6 was advanced into the Radial (right) using the Debbie orellana 9:08:51 technique. 5 mL (Bolus) RADIAL COCKTAIL given in lab by Alex Milelr in Right Radial via Radial. Adali jiménez [Solution Name]. 9:09:04 Reason: Ntg 200mcg Verapamil 2.5mg Heparin 5000U. A JR 4.0 INFINITI CATHETER FR 5 was advanced over a wire. OMNIPAQUE, 350 MG, 150ML 150ML was use d for 9:10:20 injections. Recorded Pressure: LV, HR=61, Condition=Condition 1 9:11:29 (Left Ventricle) LV 127/9/13 Recorded Pressure: LV, Ao, HR=66, Condition=Condition 1 9:11:43 (Left Ventricle) LV 128/11/12, (Aorta) Ao 123/61/88 9:12:48 The RCA was injected and visualized at various angles. OMNIPAQUE, 350 MG, 150ML 150ML used. 9:13:09 HR=61 bpm, YVSO=772/81 mmhg, SpO2=93.0 %, Resp=13 B/min Recorded Pressure: Ao, HR=62, Condition=Condition 1 9:13:10 (Aorta) Ao 122/70/93 After removing the current catheter a JL 4.0 DXTERITY CATHETER FR 5 was advanced over a WIRE, EXCHANGE 260CM 9:13:31 3MMJ 260CM. 9:15:26 The LCA was injected and visualized at various angles. OMNIPAQUE, 350 MG, 150ML 150ML use d. 9:18:34 Catheter was removed 9:18:43 HR=62 bpm, RWEA=095/77 mmhg, SpO2=88.0 %, Resp=14 B/min 9:19:40 Case End Radial Compression Device Used. 12 mLs of air placed in BAND, RADIAL COMPRESSION TR LARGE 29 2 9CM. Affected 9:21:16 hand 92 % O2 saturation. 9:21:28 No case complications noted. 9:22:02 Bedside Report will be given. 9:22:06 Cine recording checked. 9:22:17 A Left Heart Cath was performed. 9:23:42 HR=63 bpm, OWWM=253/89 mmhg, SpO2=88.0 %, Resp=9 B/min 9:28:00 Patient moved to stretcher End Study - Contrast Media Used In Study Contrast Total Opened (mL) Total Used (mL) Total Wasted (mL) Omnipaque 55 55 0 End Study - Maximum Contrast Load Max Contrast Load (mL) 465.9 End Study - Radiation Exposure Fluoro Time (minutes) 1.8 End Study - Patient Disposition Complications Transferred To Interventional Outcome No Telemetry Bed No attempt made
[2017-02-20] MEDS ORDERED: IOHEXOL 350 MG/ML 100 ML BTL (for Cath Lab) OTHER ONE (11:10)
--- NOTE | 2017-02-20 12:07 | PD.CARD.PN ---
Subjective Subjective Remarks No events overnight s/p cath, doing well Objective Medications Current Medications Medications (Trade) Dose Ordered Sig/Joanna Route Start Time Stop Time Status Last Admin (Aspirin Chew) 162 mg DAILY CHEW 02/18/17 09:00 02/20/17 07:57 (NS Flush) 2 ml UNSCH PRN IV FLUSH 02/17/17 21:15 (NS Flush) 2 ml BID IV FLUSH 02/18/17 09:00 02/20/17 07:58 (Tylenol) 500 mg Q4H PRN PO 02/17/17 21:15 (Zofran Inj) 4 mg Q6H PRN IV PUSH 02/17/17 21:15 02/18/17 08:47 (Zyloprim) 100 mg DAILY PO 02/18/17 09:00 02/20/17 07:57 (Tenormin) 25 mg BID PO 02/18/17 09:00 02/20/17 07:57 (Vasotec) 10 mg BID PO 02/18/17 09:00 02/20/17 07:57 (Neurontin) 200 mg TID PO 02/18/17 09:00 02/20/17 11:57 (Ditropan) 5 mg TID PO 02/18/17 09:00 02/20/17 11:57 (Paxil) 20 mg DAILY PO 02/18/17 09:00 02/20/17 07:57 (Protonix) 20 mg BID PO 02/18/17 09:00 02/20/17 07:57 (Nitroglycerin 2% Oint) 1 inch Q6HR TOPICAL 02/18/17 14:15 02/20/17 11:57 (Lipitor) 40 mg HS PO 02/18/17 21:00 02/19/17 21:08 Vital Signs / I&O Vital Signs Date Time Temp Pulse Resp B/P (MAP) Pulse Ox O2 Delivery O2 Flow Rate FiO2 02/20/17 10:01 58 02/20/17 09:00 62 02/20/17 08:01 97.5 59 18 136/75 (95) 93 02/20/17 08:00 52 02/20/17 07:00 64 02/20/17 06:00 56 02/20/17 05:00 56 02/20/17 04:00 62 02/20/17 03:00 53 02/20/17 03:00 95.7 67 16 113/60 (77) 90 02/20/17 02:00 62 02/20/17 01:00 60 02/20/17 00:00 54 02/19/17 23:00 47 02/19/17 23:00 97.6 63 16 136/81 (99) 96 02/19/17 22:00 62 02/19/17 21:00 50 02/19/17 20:00 54 02/19/17 19:00 97.2 50 16 137/73 (94) 96 02/19/17 19:00 59 02/19/17 18:00 58 02/19/17 17:00 58 02/19/17 16:02 50 02/19/17 15:57 98.5 54 17 118/54 (75) 97 02/19/17 15:00 53 02/19/17 14:00 54 02/19/17 13:01 98.2 57 17 118/62 (80) 94 02/19/17 13:00 60 I/O 02/19/17 02/19/17 02/19/17 02/20/17 02/20/17 02/20/17 07:00 15:00 23:00 07:00 15:00 23:00 Intake Total 222 ml 560 ml 480 ml Balance 222 ml 560 ml 480 ml Intake Oral 222 ml 560 ml 480 ml # Voids 2 Physical Exam GENERAL: NAD SKIN: Warm and dry. HEAD: Atraumatic. Normocephalic. EYES: Pupils equal and round. No scleral icterus. No injection or drainage. ENT: No nasal bleeding or discharge. Mucous membranes pink and moist. NECK: Trachea midline. No JVD. CARDIOVASCULAR: Regular rate and rhythm. RESPIRATORY: No accessory muscle use. Clear to auscultation. Breath sounds equal bilaterally. GASTROINTESTINAL: Abdomen soft, non-tender, nondistended. Hepatic and splenic margins not palpable. MUSCULOSKELETAL: Extremities without clubbing, cyanosis, or edema. No obvious deformities. NEUROLOGICAL: Awake and alert. No obvious cranial nerve deficits. Motor grossly within normal limits. Five out of 5 muscle strength in the arms and legs. Normal speech. PSYCHIATRIC: Appropriate mood and affect; insight and judgment normal. Laboratory Laboratory Tests Test 02/19/17 16:43 12/11/17 07:22 Blood Urea Nitrogen 24 MG/DL 23 MG/DL Creatinine 1.60 MG/DL 1.45 MG/DL Random Glucose 85 MG/DL 98 MG/DL Total Protein 6.8 GM/DL Albumin 2.9 GM/DL Calcium Level 9.7 MG/DL 9.9 MG/DL Alkaline Phosphatase 73 U/L Aspartate Amino Transf (AST/SGOT) 24 U/L Alanine Aminotransferase (ALT/SGPT) 16 U/L Total Bilirubin 0.9 MG/DL Sodium Level 139 MEQ/L 138 MEQ/L Potassium Level 4.2 MEQ/L 4.0 MEQ/L Chloride Level 102 MEQ/L 102 MEQ/L Carbon Dioxide Level 32.6 MEQ/L 31.6 MEQ/L Anion Gap 4 MEQ/L 4 MEQ/L Estimat Glomerular Filtration Rate 31 ML/MIN 34 ML/MIN White Blood Count 7.0 TH/MM3 Red Blood Count 4.15 MIL/MM3 Hemoglobin 13.1 GM/DL Hematocrit 40.0 % Mean Corpuscular Volume 96.4 FL Mean Corpuscular Hemoglobin 31.5 PG Mean Corpuscular Hemoglobin Concent 32.7 % Red Cell Distribution Width 15.0 % Platelet Count 188 TH/MM3 Mean Platelet Volume 10.1 FL Neutrophils (%) (Auto) 64.9 % Lymphocytes (%) (Auto) 19.3 % Monocytes (%) (Auto) 9.7 % Eosinophils (%) (Auto) 5.4 % Basophils (%) (Auto) 0.7 % Neutrophils # (Auto) 4.5 TH/MM3 Lymphocytes # (Auto) 1.3 TH/MM3 Monocytes # (Auto) 0.7 TH/MM3 Eosinophils # (Auto) 0.4 TH/MM3 Basophils # (Auto) 0.0 TH/MM3 CBC Comment DIFF FINAL Differential Comment Assessment and Plan Problem List: (1) Chest pain ICD Codes: R07.9 - Chest pain, unspecified Status: Acute (2) CAD (coronary artery disease) ICD Codes: I25.10 - Atherosclerotic heart disease of [place] coronary artery without angina pectoris (3) Atrial fibrillation ICD Codes: I48.91 - Unspecified atrial fibrillation (4) Abnormal stress test ICD Codes: R94.39 - Abnormal result of other cardiovascular function study Assessment and Plan 1) Abnormal chest pain with abnormal stress test Cardiac cath showing mild CAD 2) Afib Restart Eliquis 3) 2D echo today 4) Plan for discharge later today for follow up with Alex Higginbotham DO Feb 20, 2017 12:07
--- NOTE | 2017-02-20 13:16 | HHI.PR ---
Subjective Remarks Seen earlier today before going to cardiac cath No chest pain overnight. No n/v/d/c. Denies fever or chills. Objective Vitals Vital Signs Date Time Temp Pulse Resp B/P (MAP) Pulse Ox O2 Delivery O2 Flow Rate FiO2 02/20/17 10:01 58 02/20/17 09:00 62 02/20/17 08:01 97.5 59 18 136/75 (95) 93 02/20/17 08:00 52 02/20/17 07:00 64 02/20/17 06:00 56 02/20/17 05:00 56 02/20/17 04:00 62 02/20/17 03:00 53 02/20/17 03:00 95.7 67 16 113/60 (77) 90 02/20/17 02:00 62 02/20/17 01:00 60 02/20/17 00:00 54 02/19/17 23:00 47 02/19/17 23:00 97.6 63 16 136/81 (99) 96 02/19/17 22:00 62 02/19/17 21:00 50 02/19/17 20:00 54 02/19/17 19:00 97.2 50 16 137/73 (94) 96 02/19/17 19:00 59 02/19/17 18:00 58 02/19/17 17:00 58 02/19/17 16:02 50 02/19/17 15:57 98.5 54 17 118/54 (75) 97 02/19/17 15:00 53 02/19/17 14:00 54 I/O 02/19/17 02/19/17 02/19/17 02/20/17 02/20/17 02/20/17 07:00 15:00 23:00 07:00 15:00 23:00 Intake Total 222 ml 560 ml 480 ml Balance 222 ml 560 ml 480 ml Intake Oral 222 ml 560 ml 480 ml # Voids 2 Result Diagram: 02/20/1772102/20/17721 Imaging Last Impressions Myocardial Perfusion Scan Nuc Med 02/18/17 0000 Signed Impressions: Service Date/Time: Saturday, February 18, 2017 12:42 - CONCLUSION: 1. There appears to be some mild redistribution of the lateral wall on the non-a.c. images. This suggests some ischemic myocardial changes. There is also some hypokinesis of the lateral wall. 2. Cardiac ejection fraction is mildly decreased at 42%%. RISK CATEGORY: Intermediate Tima Lagos MD Chest X-Ray 02/17/17 1735 Signed Impressions: Service Date/Time: Friday, February 17, 2017 17:47 - CONCLUSION: 1. Cardiomegaly. No acute pulmonary disease. 2. Hiatal hernia Nabor Michael MD Gall Bladder Ultrasound 02/17/17 0000 Signed Impressions: Service Date/Time: Friday, February 17, 2017 19:11 - CONCLUSION: 1. Mild hepatomegaly. 2. Right renal cortical thinning. 3. Slight prominence of the main pancreatic duct which is nonspecific. John Angelo MD Abdomen/Pelvis CT 02/17/17 0000 Signed Impressions: Service Date/Time: Friday, February 17, 2017 18:19 - CONCLUSION: 1. Large hiatal hernia containing half of the stomach. 2. Mild central intrahepatic and extra hepatic biliary ductal dilatation. Correlation with alkaline phosphatase and bilirubin values is recommended to rule out biliary obstruction. [place] phenomenon should also be considered status post cholecystectomy. 3. Hepatic and right renal cysts. 4. 3 mm calcified nonobstructing right renal calculus. 5. Uncomplicated colonic diverticulosis. 6. Mild chronic compression deformity involving L1. 7. Degenerative changes throughout the thoracolumbar spine. John Angelo MD Objective Remarks GENERAL: Elderly white female, obese, no acute distress CARDIOVASCULAR: Regular rate and rhythm. no murmurs RESPIRATORY: No accessory muscle use. Clear to auscultation. Breath sounds equal bilaterally. GASTROINTESTINAL: Abdomen soft, non-tender, nondistended. Extremities: No clubbing, cyanosis, or edema. No obvious deformities. MUSCULOSKELETAL: Patient has intact range of motion including right shoulder abduction, abduction, and external rotation, negative Padgett test. She has mild tenderness to palpation over the right pectoral region but the patient states that this is not the same pain she experienced yesterday NEUROLOGICAL: Awake and alert. No obvious cranial nerve deficits. No facial droop nor slurred speech noted. PSYCHIATRIC: Appropriate mood and affect; insight and judgment normal. A/P Assessment and Plan 82-year-old white female being admitted for chest pain Chest pain Independently reviewed EKG which shows A. fib Troponins have been negative; we'll proceed with nuclear stress test Stress test is positive, cardiology following, plan for catheterization on Monday. Starting lipitor, continue aspirin. holding eliquis. afib - atenolol and eliquis, currently rate controlled Patient went for cardiac cath by Dr Burkett today 02/20/17, discussed with Dr Burkett and michael eaton a clean cardiac cath . Plan for ECHO , patielliott tcan be DC later today after ECHO per cardio . To follow up as OP with her cardiology Dr Sewell HTN Enalapril Chronic pain Tramadol and gabapentin Continue home paroxetin Patient has a large hiatal hernia involving her stomach in the abdomen based upon the CT findings. Repeating LFTs DVT prevention - SCD/TEDs, eliquis on hold for poss cardiac cath. DC plan: Patient went for cardiac cath by Dr Burkett today 02/20/17, discussed with Dr Burkett and michael eaton a clean cardiac cath . Plan for ECHO , patien tcan be DC later today after ECHO per cardio . To follow up as OP with her cardiology Blanquita Moise MD Feb 20, 2017 13:15
[2017-02-20] MEDS ORDERED: ASPI81 CHEW (13:19)
[2017-02-20] MEDS ORDERED: ATOR40TA16 PO (13:19)
--- NOTE | 2017-02-20 13:19 | HHI.DS ---
Discharge Summary Admission Date Feb 18, 2017 at 17:52 Discharge Date: Feb 20, 2017 Admitting Diagnosis chest pain (1) Abnormal stress test ICD Code: R94.39 - Abnormal result of other cardiovascular function study (2) CAD (coronary artery disease) ICD Code: I25.10 - Atherosclerotic heart disease of [place] coronary artery without angina pectoris (3) Atrial fibrillation ICD Code: I48.91 - Unspecified atrial fibrillation (4) Chest pain ICD Code: R07.9 - Chest pain, unspecified Status: Acute Procedures diac cath by Dr Burkett on 02/20/17 Brief History - From Admission 82-year-old white female being admitted for chest pain. Patient was in her usual state of health until yesterday morning at some point when she began experiencing a sudden onset of right-sided chest pain and shoulder pain with subsequent right hand numbness. She reports that the pain was pretty severe but is unable to identify any alleviating or exacerbating factors. She has had a cough days prior to this at which point her said she did have a tactile subjective fever. Was associated with some nausea, but no vomiting and no diarrhea. She denies any nesha shortness of breath. She decided come to the emergency room due to to her symptoms. Otherwise the patient states she is not hurting at this time. She denies ever having any cardiac history. She states that recently she lost one her daughters, and that her other daughter is flying in today into town. states that she has chronic lower extremity edema CBC/BMP: 02/20/17 0722 02/20/17 0722 Significant Findings Laboratory Tests Test 02/17/17 17:40 02/17/17 21:25 02/18/17 00:40 02/18/17 08:45 Neutrophils (%) (Auto) 79.8 % (16.0-70.0) Neutrophils # (Auto) 8.7 TH/MM3 (1.8-7.7) Blood Urea Nitrogen 22 MG/DL (7-18) 21 MG/DL (7-18) Creatinine 1.30 MG/DL (0.50-1.00) 1.20 MG/DL (0.50-1.00) Random Glucose 136 MG/DL (74-106) Albumin 3.0 GM/DL (3.4-5.0) 3.0 GM/DL (3.4-5.0) Total Bilirubin 1.3 MG/DL (0.2-1.0) 1.3 MG/DL (0.2-1.0) Potassium Level 3.3 MEQ/L (3.5-5.1) Estimat Glomerular Filtration Rate 39 ML/MIN (>89) 43 ML/MIN (>89) Troponin I LESS THAN 0.02 NG/ML LESS THAN 0.02 NG/ML LESS THAN 0.02 NG/ML B-Type Natriuretic Peptide 200 PG/ML (0-100) Total Creatine Kinase 25 U/L (26-192) Calcium Level 10.2 MG/DL (8.5-10.1) Indirect Bilirubin 1.1 MG/DL (0.0-0.8) HDL Cholesterol 39.5 MG/DL (40.0-60.0) Test 02/19/17 16:43 02/20/17 07:22 Blood Urea Nitrogen 24 MG/DL (7-18) 23 MG/DL (7-18) Creatinine 1.60 MG/DL (0.50-1.00) 1.45 MG/DL (0.50-1.00) Albumin 2.9 GM/DL (3.4-5.0) Carbon Dioxide Level 32.6 MEQ/L (21.0-32.0) Anion Gap 4 MEQ/L (5-15) 4 MEQ/L (5-15) Estimat Glomerular Filtration Rate 31 ML/MIN (>89) 34 ML/MIN (>89) Monocytes (%) (Auto) 9.7 % (0.0-8.0) Eosinophils (%) (Auto) 5.4 % (0.0-4.0) PE at Discharge GENERAL: Elderly white female, obese, no acute distress CARDIOVASCULAR: Regular rate and rhythm. no murmurs RESPIRATORY: No accessory muscle use. Clear to auscultation. Breath sounds equal bilaterally. GASTROINTESTINAL: Abdomen soft, non-tender, nondistended. Extremities: No clubbing, cyanosis, or edema. No obvious deformities. MUSCULOSKELETAL: Patient has intact range of motion including right shoulder abduction, abduction, and external rotation, negative Padgett test. She has mild tenderness to palpation over the right pectoral region but the patient states that this is not the same pain she experienced yesterday NEUROLOGICAL: Awake and alert. No obvious cranial nerve deficits. No facial droop nor slurred speech noted. PSYCHIATRIC: Appropriate mood and affect; insight and judgment normal. Hospital Course 82-year-old white female being admitted for chest pain Patient with Chest pain on admission, EKG with Afib rate controlled. Troponins have been negative. Stress test is positive, cardiology following, plan for catheterization on Monday. Starting lipitor, continue aspirin. holding eliquis. Continue home meds for afib- atenolol and eliquis, currently rate controlled Patient says her daughter 1 week ago, coping well has family support. Patient went for cardiac cath by Dr Burkett today 02/20/17, discussed with Dr Burkett and patient had a clean cardiac cath . Plan for ECHO , patient DCed after ECHO . To follow up as OP with her cardiology Dr Sewell . To follow up as OP with PCP and consultants. Pt Condition on Discharge: Good Discharge Disposition: Discharge Home Discharge Time: > 30 minutes Discharge Instructions DIET: Follow Instructions for: Heart Healthy Diet Activities you can perform: Regular-No Restrictions Follow up Referrals: Cardiology - 1 Week with Hank Sewell MD PCP Follow-up - 2-3 Days New Medications: Aspirin (Tgt Aspirin) 81 Mg Chw 162 MG CHEW DAILY for Blood Clot Prevention, #30 EA Atorvastatin (Atorvastatin) 40 Mg Tab 40 MG PO HS for Cholesterol Management, #30 TAB Continued Medications: Allopurinol (Allopurinol) 100 Mg Tab 100 MG PO DAILY for Gout, #30 TAB 0 Refills Apixaban (Eliquis) 5 Mg Tab 5 MG PO BID for Blood Clot Prevention, #60 TAB 0 Refills Atenolol (Atenolol) 50 Mg Tab 25 MG PO BID for Blood Pressure Management, #30 TAB 0 Refills Cholecalciferol (Vitamin D3) 2,000 Unit Cap 2000 UNITS PO DAILY for Nutritional Supplement, #1 BOTTLE 0 Refills Enalapril (Enalapril) 10 Mg Tab 10 MG PO BID, #60 TAB 0 Refills Gabapentin (Gabapentin) 100 Mg Cap 200 MG PO TID, #90 CAP 0 Refills Omeprazole (Omeprazole) 40 Mg Cap 20 MG PO BID, #30 CAP 0 Refills Oxybutynin (Ditropan) 5 Mg Tab 5 MG PO TID for Urinary Symptom Managemen, #60 TAB 0 Refills Paroxetine (Paroxetine) 20 Mg Tab 20 MG PO DAILY, #30 TAB 0 Refills Tramadol (Tramadol) 50 Mg Tab 50 MG PO TID PRN for PAIN, TAB 0 Refills Blanquita Gutierrez MD Feb 20, 2017 13:19
--- NOTE | 2017-02-20 15:14 | ECHRPT ---
Indication: chest pain CONCLUSIONS The left ventricular systolic function is normal with an estimated ejection fraction in the range of 60-65%. Normal left ventricular size. Severe concentric left ventricular hypertrophy. No regional wall motion abnormalities are present. The left atrial size is severely dilated. Trace mitral valve regurgitation. Diffuse calcification of the aortic valve. Trace aortic valve regurgitation. There is mild to moderate tricuspid valve regurgitation. The estimated pulmonary arterial pressure is 59.8 mmHg. BP: 118 / 62 HR: 80 Rhythm: Atrial fibrillation MEASUREMENTS (Male / Female) Normal Values Technical Quality:Fair 2D ECHO LV Diastolic Diameter PLAX 3.5 cm 4.2 - 5.9 / 3.9 - 5.3 cm LV Systolic Diameter PLAX 2.3 cm IVS Diastolic Thickness 2.0 cm 0.6 - 1.0 / 0.6 - 0.9 cm LVPW Diastolic Thickness 2.0 cm 0.6 - 1.0 / 0.6 - 0.9 cm LV Relative Wall Thickness 1.1 RV Internal Dim ED PLAX 2.6 cm LVOT Diameter 1.7 cm LA Systolic Diameter LX 5.0 cm 3.0 - 4.0 / 2.7 - 3.8 cm LV Ejection Fraction MOD 4C 66.7 % LV Cardiac Index MOD 4C 2058.6 cm/minm LV Ejection Fraction 4C AL 68.0 % LV Cardiac Index 4C AL 2190.6 cm/minm M-MODE Aortic Root Diameter MM 2.4 cm AV Cusp Separation MM 1.3 cm DOPPLER AV Peak Velocity 194.0 cm/s AV Peak Gradient 15.1 mmHg LVOT Peak Velocity 123.0 cm/s LVOT Peak Gradient 6.1 mmHg AV Area Cont Eq pk 1.4 cm MV Area PHT 3.0 cm LV E' Lateral Velocity 10.4 cm/s LV E' Septal Velocity 3.8 cm/s TR Peak Velocity 353.0 cm/s TR Peak Gradient 49.8 mmHg Right Atrial Pressure 10.0 mmHg Pulmonary Artery Systolic Pressu 59.8 mmHg Right Ventricular Systolic Press 59.8 mmHg PV Peak Velocity 99.1 cm/s PV Peak Gradient 3.9 mmHg FINDINGS LEFT VENTRICLE The left ventricular systolic function is normal with an estimated ejection fraction in the range of 60-65%. Normal left ventricular size. Severe concentric left ventricular hypertrophy. No regional wall motion abnormalities are present. RIGHT VENTRICLE Normal right ventricular size and systolic function. LEFT ATRIUM The left atrial size is severely dilated. RIGHT ATRIUM The right atrial size is normal. ATRIAL SEPTUM Normal atrial septal thickness without atrial level shunting by limited color doppler interrogation. AORTA The aortic root and proximal ascending aorta are normal in size on limited imaging. MITRAL VALVE Structurally normal mitral valve. Trace mitral valve regurgitation. AORTIC VALVE Trileaflet aortic valve. Diffuse calcification of the aortic valve. Trace aortic valve regurgitation. TRICUSPID VALVE Structurally normal tricuspid valve. There is mild to moderate tricuspid valve regurgitation. The estimated pulmonary arterial pressure is 59.8 mmHg. PULMONARY VALVE No pulmonary valve regurgitation or stenosis. VESSELS The inferior vena cava is normal in size. PERICARDIUM No pericardial effusion. Luis Enrique Keller MD (Electronically Signed) Final Date:20 February 2017 15:12
--- NOTE | 2017-02-21 12:17 | MA ---
cc: SHERLEY MORAES DO DATE February 20, 2017 PROCEDURE Left heart catheterization, coronary angiogram. PREPROCEDURE DIAGNOSIS Chest pain. Abnormal stress test. POSTPROCEDURE DIAGNOSIS Mild coronary artery disease. MEDICATIONS 1. Fentanyl 25 mcg. 2. Verapamil 2.5 mg. 3. Nitro 10 mcg. 4. Heparin 5000 units. CONTRAST USED 55 cc. MODERATE SEDATION 0 minutes. FLUOROSCOPY 1.8 minutes ESTIMATED BLOOD LOSS 10 cc. PROCEDURAL SUMMARY Judith Navarro is a pleasant 82-year-old female who sees my partner Dr. Sewell in the office and presented to [facility] due to chest pain. She underwent stress testing which showed possible lateral ischemia and because of this she was recommended cardiac catheterization. The risks, benefits and alternatives were explained to her and her and they consented for the procedure as such. She was brought to the lab and prepped in the usual sterile fashion. The right radial artery was accessed using a modified Seldinger technique and placement of a 5/6-[place] sheath. This was easily aspirated and flushed. The JR-4 was advanced over a J-wire to the ascending aorta and across the aortic valve for measurement of left ventricular pressure. This was pulled back across the aortic valve showing no significant gradient of aortic stenosis. The JR-4 was used for selective angiography of the right coronary artery system. This exchanged out for a JL-3.5 which was used for selective angiography of the left coronary artery system. JL-3.5 was removed over a J-wire. A radial band was placed over the arteriotomy site for hemostasis. 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 FINDINGS LEFT MAIN: Overall short vessel with no significant disease. It bifurcates into an LAD and circumflex. LAD: Normal-size vessel with mild luminal irregularities throughout the proximal to midportion. He gives off two diagonals with no significant disease. LEFT CIRCUMFLEX: Normal to large-sized vessel with mild luminal irregularities in the midportion. It gives off two large obtuse marginals and two smaller posterior lateral branches with mild disease and tortuosity. RCA: Normal-sized vessel with a 20% lesion in the midportion. Overall it is a dominant vessel with no significant disease noted in the PDA or PLV. LVEDP 12. IMPRESSIONS 1. Atypical chest pain. 2. Abnormal stress test. 3. Mild coronary artery disease by cardiac catheterization (February 21, 2017). RECOMMENDATIONS 1. Ms. Navarro will continue on medical management for her mild coronary artery disease. 2. She will have an echocardiogram done today and if no problems will be planned to discharge home later today. 3. She will follow up with Dr. Sewell in the office as previously scheduled. Thank you for allowing me to see Judith Navarro. If there are any questions please do not hesitate to call. Sherley Moraes DO VGP/SSB /11:43 AM /12:03 PM
== END 2017-02-20 15:39 | disposition home or self-care (01) | DRG 287 ==
LOC: PHED 17:07 → PHEDA 21:09 → PH3A 22:15 → OBSVTOIN 02-18 17:52 → HCIS 02-19 01:10
PROVIDERS: ADMIT Hospitalist; ATTEND Hospitalist
PROC: 4A023N7 Measurement of Cardiac Sampling and Pressure, Left Heart, Percutaneous Approach (ICD-10-PCS; 2017-02-20)
PROC: B2111ZZ Fluoroscopy of Multiple Coronary Arteries using Low Osmolar Contrast (ICD-10-PCS; principal; 2017-02-20 08:45)
DX: R07.89 Other chest pain (principal); I48.91 Unspecified atrial fibrillation; Z68.41 Body mass index [BMI] 40.0-44.9, adult; E66.9 Obesity, unspecified; I25.10 Atherosclerotic heart disease of native coronary artery without angina pectoris; R94.39 Abnormal result of other cardiovascular function study; Z23 Encounter for immunization; G89.29 Other chronic pain; I10 Essential (primary) hypertension; K44.9 Diaphragmatic hernia without obstruction or gangrene; Z87.891 Personal history of nicotine dependence
CPT/HCPCS: 71010; 74177; 76705; 78452; 80048; 80053; 80061; 80076; 82550; 83690; 83880; 84484; 85025; 85610; 85730; 90471; 90686; 93005; 93017; 93306; 93458; A9502; C1769; C1893; G0008; J1644; J2405; J2785; J3010; Q2038; Q9967